=== PATIENT | female | born 1955 | race Caucasian/White ===

== ENCOUNTER 2018-10-04 21:00 | Inpatient (IN) | payer MEDICAID ==
[2018-10-04] MEDS ORDERED: Sodium Chloride 0.9% 1,000 ML IV ONE (21:32)
--- NOTE | 2018-10-04 21:32 | C.PDOC ---
History Of Present Illness The patient, whose past medical history includes IDDM, presents to the ED for evaluation of high blood sugar noted over the past 4 days. Patient is also complaining of swelling, redness and tenderness over her right 3rd toe. Patient denies fever, chills. Time Seen by Provider: 10/04/18 21:32 Chief Complaint (Nursing): High Blood Sugar History Per: Patient History/Exam Limitations: no limitations Onset/Duration Of Symptoms: Days (4) Current Symptoms Are (Timing): Still Present Severity: Mild Pain Scale Rating Of: 2 Recent travel outside of the [place]: No Additional History Per: Patient Past Medical History Reviewed: Historical Data, Nursing Documentation, Vital Signs Vital Signs: Last Vital Signs Temp 97.9 F 10/04/18 21:20 Pulse 99 H 10/04/18 21:20 Resp 20 10/04/18 21:20 BP 95/56 L 10/04/18 21:20 Pulse Ox 98 10/04/18 21:20 - Medical History PMH: Diabetes, HTN Surgical History: No Surg Hx Family History: States: Unknown Family Hx - Social History Hx Alcohol Use: No Hx Substance Use: No - Immunization History Hx Tetanus Toxoid Vaccination: No Hx Influenza Vaccination: No Hx Pneumococcal Vaccination: No Review Of Systems Constitutional: Positive for: Other (high blood sugar ). Negative for: Fever, Chills Eyes: Negative for: Vision Change Cardiovascular: Negative for: Chest Pain, Palpitations Respiratory: Negative for: Cough, Shortness of Breath Gastrointestinal: Negative for: Nausea, Vomiting, Abdominal Pain, Diarrhea Genitourinary: Negative for: Dysuria, Frequency, Hematuria Musculoskeletal: Positive for: Other (swelling, redness and tenderness to right 3rd toe ) Skin: Negative for: Rash, Lesions, Jaundice, Bruising Neurological: Negative for: Weakness, Numbness, Confusion, Altered Mental Status, Headache Psych: Negative for: Anxiety Physical Exam - Physical Exam Appears: Non-toxic, No Acute Distress Skin: Warm, Dry Head: Normacephalic Eye(s): bilateral: Normal Inspection Oral Mucosa: Moist Neck: Supple Chest: Symmetrical, No Deformity, No Tenderness Cardiovascular: Rhythm Regular Respiratory: No Rales, No Rhonchi, No Wheezing Gastrointestinal/Abdominal: Soft, No Tenderness, No Guarding, No Rebound Extremity: Normal ROM, Capillary Refill (less than 2 seconds ), Other (right 3rd toe: erythema with small amount of foul-smelling discharge ) Pulses: Left Dorsalis Pedis: Normal, Right Dorsalis Pedis: Normal Neurological/Psych: Oriented x3 ED Course And Treatment - Laboratory Results Result Diagrams: 10/04/18 22:10 10/04/18 22:10 O2 Sat by Pulse Oximetry: 98 (on RA ) Pulse Ox Interpretation: Normal Progress Note: Bloodwork and urinalysis ordered. IV fluids given. Disposition Discussed With Dr.: Dago Sanchez Comment: accepted the pt on his service and took over the care at 12:35 AM Doctor Will See Patient In The: Hospital Counseled Patient/Family Regarding: Studies Performed, Diagnosis - Disposition Disposition: HOSPITALIZED Disposition Time: 21:32 Condition: FAIR Forms: [facility] (Albanian) - POA Present On Arrival: Poor Glycemic Control, Pressure Ulcer - Clinical Impression Clinical Impression: Hyperglycemia, Diabetic complication, Uncontrolled diabetes mellitus, Oste omyelitis - Scribe Statement The provider has reviewed the documentation as recorded by the Scribe (Lucía Lopez) Provider Attestation: All medical record entries made by the Scribe were at my direction and personally dictated by me. I have reviewed the chart and agree that the record accurately reflects my personal performance of the history, physical exam, medical decision making, and the department course for this patient. I have also personally directed, reviewed, and agree with the discharge instructions and disposition. Decision To Admit - Pt Status Changed To: Hospital Disposition Of: Inpatient - Admit Certification Admit to Inpatient:: After my assessment, the patient will require hospitalization for at least two midnights. This is because of the severity of symptoms shown, intensity of services needed, and/or the medical risk in this patient being treated as an outpatient. - InPatient: Physician Admission Certification: I certify that this patient requires 2 or more midnights of care for the following reason:: After my assessment, the patient will require hospitalization for at least two midnights. This is because of the severity of symptoms shown, intensity of services needed, and/or the medical risk in this patient being treated as an outpatient. - . Bed Request Type: Regular Admitting Physician: Dago Sanchez Patient Diagnosis: Hyperglycemia, Diabetic complication, Uncontrolled diabetes mellitus, Osteomyelitis
[2018-10-04] MEDS ORDERED: Sodium Chloride 0.9% 1,000 ML ONE (22:07)
[2018-10-04 22:12] LABS: VENOUS BLOOD GAS BASE EXCESS 12.3 mmol/L (0.0-2.0); VENOUS BLOOD GAS PCO2 41 mmHg (40-60); VENOUS BLOOD GAS PO2 15 mm/Hg (30-55); VENOUS BLOOD PH 7.55 (7.32-7.43)
[2018-10-04 22:20] LABS: BASO % 0.2 % (0.0-2.0); EOS % 0.1 % (0.0-4.0); HEMOGLOBIN 8.9 g/dL (11.0-16.0); LYMPH # 2.5 K/uL (1.0-4.3); LYMPH % 21.1 % (20.0-40.0); MEAN CELL VOLUME 87.5 fL (81.0-99.0); MEAN CORPUSCULAR HEMOGLOBIN 27.5 pg (27.0-31.0); MEAN CORPUSCULAR HGB CONC 31.4 g/dL (33.0-37.0); MEAN PLATELET VOLUME 9.5 fL (7.2-11.7); MONO # 0.5 K/uL (0.0-0.8); MONO % 4.5 % (0.0-10.0); NEUT # 8.7 K/uL (1.8-7.0); NEUT % 74.1 % (50.0-75.0); NRBC % 0.1 % (0.0-2.0); RBC 3.23 Mil/uL (3.80-5.20); RED CELL DISTRIBUTION WIDTH 14.4 % (11.5-14.5); WHITE BLOOD COUNT 11.8 K/uL (4.8-10.8)
[2018-10-04 22:25] LABS: SQUAMOUS EPITHIAL 2 /hpf (0-5); URINE BACTERIA OCC (<OCC); URINE BILIRUBIN NEGATIVE (NEGATIVE); URINE BLOOD 1+ (NEGATIVE); URINE CLARITY Clear (Clear); URINE COLOR Yellow (YELLOW); URINE GLUCOSE (UA) 3+ mg/dL (Normal); URINE LEUKOCYTE ESTERASE 2+ Leu/uL (Negative); URINE PROTEIN NEGATIVE (NEGATIVE)
[2018-10-04 22:33] LABS: ALBUMIN 3.5 g/dL (3.5-5.0); ALT/SGPT 9 U/L (9-52); AST/SGOT 21 U/L (14-36); BLOOD UREA NITROGEN 20 mg/dL (7-17); CALCIUM 7.9 mg/dl (8.6-10.4); GFR NON-AFRICAN AMERICAN 56; LIPASE 62 U/L (23-300)
[2018-10-04] MEDS ORDERED: (Novolin R) Insulin Human Regular 100 units/ml vial IVP ONE (22:34)
[2018-10-04] MEDS ORDERED: Piperacillin/Tazobact 3.375 gm 100 ML IVPB STA (22:38)
[2018-10-04] MEDS ORDERED: Vancomycin 1 GM 1 GM/250 ML BAG IVPB STA (22:38)
[2018-10-04] MEDS ORDERED: (Novolin R) Insulin Human Regular 100 units/ml vial ONE (22:41)
[2018-10-04] MEDS ORDERED: Piperacillin/Tazobact 3.375 gm 100 ML IVPB ONE (22:53)
[2018-10-04] MEDS ORDERED: Vancomycin 1 GM 1 GM/250 ML BAG IVPB ONE (23:23)
[2018-10-05 00:36] LABS: VENOUS BLOOD GAS BASE EXCESS 10.9 mmol/L (0.0-2.0); VENOUS BLOOD GAS PCO2 47 mmHg (40-60); VENOUS BLOOD GAS PO2 24 mm/Hg (30-55); VENOUS BLOOD PH 7.49 (7.32-7.43)
[2018-10-05] MEDS ORDERED: Sodium Chloride 0.9% 1,000 ML IV ONE (00:37)
[2018-10-05 01:04] LABS: VENOUS BLOOD GAS PCO2 47 mmHg (40-60); VENOUS BLOOD GAS PO2 42 mm/Hg (30-55); VENOUS BLOOD PH 7.48 (7.32-7.43)
[2018-10-05] MEDS: Piperacillin/Tazobact 3.375 GM in Sodium Chloride 100 ML IVPB SCH ×4 (01:11→18:11)
[2018-10-05] MEDS: Sodium Chloride 0.9% 1,000 ML IV SCH ×3 (02:04→21:44)
[2018-10-05] MEDS: (Novolin R) Insulin Human Regular 100 units/ml vial SC SCH ×4 (08:30→21:44)
[2018-10-05 09:07] LABS: BLOOD UREA NITROGEN 18 mg/dL (7-17); CALCIUM 7.2 mg/dl (8.6-10.4); GFR NON-AFRICAN AMERICAN 56
[2018-10-05 09:54] LABS: HEMOGLOBIN 8.5 g/dL (11.0-16.0); MEAN CELL VOLUME 87.4 fL (81.0-99.0); MEAN CORPUSCULAR HEMOGLOBIN 29.7 pg (27.0-31.0); MEAN PLATELET VOLUME 9.3 fL (7.2-11.7); RBC 2.85 Mil/uL (3.80-5.20); RED CELL DISTRIBUTION WIDTH 13.6 % (11.5-14.5); WHITE BLOOD COUNT 9.9 K/uL (4.8-10.8)
[2018-10-05] MEDS ORDERED: Potassium Chloride 20 mEq ER Tab PO ONE (10:00)
[2018-10-05] MEDS: Enoxaparin 40 mg Syringe SC SCH (10:09)
[2018-10-05] MEDS: Pantoprazole 20 mg EC Tab PO SCH (10:09)
[2018-10-05] MEDS: (Lantus) Insulin Glargine, Recombinant SC SCH ×2 (10:12→17:16)
[2018-10-05] MEDS: Metoprolol Succinate 25 mg XL Tab PO SCH (10:12)
--- NOTE | 2018-10-05 13:06 | CT ---
Date of service: 10/04/2018 PROCEDURE: RIGHT FOOT CT WITHOUT CONTRAST HISTORY: right foot, att 3rd digit COMPARISON: none available. TECHNIQUE: A volumetric CT acquisition through the right foot is been performed without intravenous contrast. Reformatted dataset provided for interpretation as well. Radiation dose:Total exam DLP = 325.90 mGy-cm. This CT exam was performed using one or more of the following dose reduction techniques: Automated exposure control, adjustment of the mA and/or kV according to patient size, and/or use of iterative reconstruction technique. FINDINGS: Erosive changes destroyed the distal phalanx and likely a portion of the distal segment middle phalanx right 3rd digit with surrounding soft tissue edema present. No similar findings throughout the remainder of the right foot including the midfoot and hindfoot bony anatomy compatible. The findings are most compatible with osteomyelitis in the proper clinical setting lower destructive processes possible as well. Further clinical correlation is advised. No emphysematous soft tissue changes are identified. Diffuse cellulitis is appreciated throughout the right foot moderately, concentrated at the distal portion 3rd digit. No fracture, subluxation or dislocation evident. A severe hallux valgus deformity is identified with diffuse hammertoe deformities throughout the 2nd through 5th digits. IMPRESSION: Findings most compatible clinically suspected osteomyelitis involving the distal phalanx right 3rd digit possibly distal portion middle phalanx same toe. Diffuse soft tissue edema seen throughout the right foot but is concentrated at the 3rd digit. Concordant preliminary report from [place], 10/04/2018, 11:25 p.m..
--- NOTE | 2018-10-05 14:41 | VASCLAB ---
Date of service: 10/05/2018 STUDY DESCRIPTION: Lower Extremity Arterial Exam (PVR). HISTORY: PAD, Diabetic. PRIORS: None. TECHNIQUE: Pulse volume recording waveforms and segmental pressures of bilateral lower extremities at multiple levels were obtained. Ankle Brachial Indices (ABIs) were calculated. Report prepared by FRANCISCA Alexis RIGHT LOWER EXTREMITY: * Brachial artery: Pressure - 138 mmHg. * High thigh: Pressure - 180 mmHg: Ratio - 1.30: PVR waveform - Pulsatile * Low thigh: Pressure - 157 mmHg: Ratio - 1.14 PVR waveform: Pulsatile * Calf: Pressure - 179 mmHg: Ratio - 1.30 PVR waveform: Pulsatile * Posterior tibial Artery: Pressure - 155 mmHg: Ratio - 1.12 PVR waveform: Pulsatile * Dorsalis pedis Artery: Pressure - 152 mmHg: Ratio - 1.10 PVR waveform: Pulsatile Ankle brachial index (JEANETTE): 1.12 LEFT LOWER EXTREMITY: * Brachial artery: Pressure - 132 mmHg. * High thigh: Pressure - 162 mmHg: Ratio - 1.17 PVR waveform - Pulsatile * Low thigh: Pressure - 174 mmHg: Ratio - 1.26 PVR waveform: Pulsatile * Calf: Pressure - 169 mmHg: Ratio - 1.22 PVR waveform: Pulsatile * Posterior tibial Artery: Pressure - 157 mmHg: Ratio - 1.14 PVR waveform: Pulsatile * Dorsalis pedis Artery: Pressure - 148 mmHg: Ratio - 1.07 PVR waveform: Pulsatile Ankle brachial index (JEANETTE): 1.14 OTHER FINDINGS: None. IMPRESSION: There was no evidence of hemodynamically significant arterial insufficiency in bilateral lower extremities, at rest.
--- NOTE | 2018-10-05 16:13 | CP.PCM.CON ---
History of Present Illness - History of Present Illness History of Present Illness: Podiatry Consult note: Dr. Saldivar 63 year old female patient with PMHx of DM and HTN was seen and evaluated at bedside for right foot 3rd digit cellulitis. Patient states that she had swelling in her toe with redness and tenderness for approx 4 days. Patient states that she got the wound because of the diabetes. Patient denies of any treatment prior to coming to the hospital. Patient denies of taking abx prior to coming to the hospital. Patient denies of having any recent F/N/V/C/SOB/CP/headache. Denies of any other pedal complains at this time. PMHx: DM, HTN PSHx: denies Allergies: NKDA SHx: Denies EtOH, smoking or illicit drug usage Review of Systems - Constitutional Constitutional: As Per HPI Past Patient History - Past Social History Smoking Status: Never Smoked - CARDIAC Hx Hypertension: Yes - ENDOCRINE/METABOLIC Hx Diabetes Mellitus Type 2: Yes - MUSCULOSKELETAL/RHEUMATOLOGICAL Hx Falls: No - PSYCHIATRIC Hx Substance Use: No - SURGICAL HISTORY Hx Surgeries: No - ANESTHESIA Hx Anesthesia: Yes Hx Anesthesia Reactions: No Hx Malignant Hyperthermia: No Meds Allergies/Adverse Reactions: Allergies Allergy/AdvReac Type Severity Reaction Status Date / Time No Known Allergies Allergy Unverified 10/04/18 21:24 - Medications Medications: Current Medications Acetaminophen (Tylenol 325mg Tab) 650 mg PO Q6 PRN PRN Reason: Fever >100.4 F Aspirin (Ecotrin) 81 mg PO DAILY [facility] Last Admin: 10/05/18 10:09 Dose: 81 mg Enoxaparin Sodium (Lovenox) 40 mg SC DAILY [facility] Last Admin: 10/05/18 10:09 Dose: 40 mg Gabapentin (Neurontin) 300 mg PO TID [facility] Last Admin: 10/05/18 14:58 Dose: 300 mg Sodium Chloride (Sodium Chloride 0.9%) 1,000 mls @ 100 mls/hr IV .Q10H [facility] Last Admin: 10/05/18 13:12 Dose: Not Given Vancomycin HCl 1,000 mg/ (Sodium Chloride) 250 mls @ 166.6 mls/hr IVPB Q12H [facility]; Protocol Last Admin: 10/05/18 13:15 Dose: 166.6 mls/hr Piperacillin Sod/Tazobactam (Sod 3.375 gm/ Sodium Chloride) 100 mls @ 200 mls/hr IVPB Q6H [facility]; Protocol Last Admin: 10/05/18 13:13 Dose: 200 mls/hr Insulin Glargine (Lantus) 28 unit SC BID [facility] Last Admin: 10/05/18 10:12 Dose: 28 units Insulin Human Regular (Novolin R) 0 unit SC ACHS [facility]; Protocol Metformin HCl (Glucophage) 1,000 mg PO BID [facility] Last Admin: 10/05/18 10:09 Dose: 1,000 mg Metoprolol Succinate (Toprol Xl) 25 mg PO DAILY [facility] Last Admin: 10/05/18 10:12 Dose: 25 mg Pantoprazole Sodium (Protonix Ec Tab) 20 mg PO DAILY [facility] Last Admin: 10/05/18 10:09 Dose: 20 mg Pneumococcal Polyvalent Vaccine (Pneumovax 23 Vaccine) 0.5 ml IM .ONCE ONE Stop: 10/07/18 10:01 Tramadol HCl (Ultram) 50 mg PO TID PRN PRN Reason: Pain, moderate (4-7) Physical Exam - Constitutional Appears: Well, Non-toxic, No Acute Distress - Extremities Exam Additional comments: RLE focused exam: VASC: DP/PT pulses are palpable 2/4, Cap refill time: < 3 sec to all digits, Temp gradient: warm to cool from proximal to distal with increasing temp grad ient localized to 3rd digit, non pitting edema accompanied with erythema localized to the right foot 3rd digit DERM: hyperkeratotic lesion at the level of proximal interphalangeal joint measuring approx 0.5cmx0.2cmx0.2cm noted with a central opening, purulent drainage upon palpation, no malodor, no tunneling, no undermining, no tracking, periwound erythema NEURO: Protective sensation grossly intact ORTHO: Pain on palpation of the 3rd digit, MMT: 5/5 in all 4 direction at the - Neurological Exam Neurological exam: Alert, Oriented x3 - Psychiatric Exam Psychiatric exam: Normal Affect, Normal Mood Results - Vital Signs Recent Vital Signs: Last Vital Signs Temp 98.9 F 10/05/18 08:18 Pulse 80 10/05/18 08:18 Resp 20 10/05/18 08:18 BP 135/72 10/05/18 08:18 Pulse Ox 95 10/05/18 08:18 - Labs Result Diagrams: 10/05/18 07:00 10/05/18 07:00 Labs: Laboratory Results - last 24 hr 10/04/18 10/04/18 10/04/18 21:18 22:00 22:10 WBC 11.8 H RBC 3.23 L Hgb 8.9 L Hct 28.3 L MCV 87.5 MCH 27.5 MCHC 31.4 L RDW 14.4 Plt Count 438 H MPV 9.5 Neut % (Auto) 74.1 Lymph % (Auto) 21.1 Green % (Auto) 4.5 Eos % (Auto) 0.1 Baso % (Auto) 0.2 Neut # (Auto) 8.7 H Lymph # (Auto) 2.5 Green # (Auto) 0.5 Eos # (Auto) 0.0 Baso # (Auto) 0.0 pO2 15 L VBG pH 7.55 H VBG pCO2 41 VBG HCO3 32.6 VBG Total CO2 37.2 H VBG O2 Sat (Calc) 41.2 VBG Base Excess 12.3 H VBG Potassium 2.9 L Sodium 130.0 L Chloride 90.0 L Glucose 413 H* Lactate 2.4 H Crit Value Called To Crit Value Called By Margy lara Crit Value Read Back Y Blood Gas Notified Time 2211 Potassium Carbon Dioxide Anion Gap BUN Creatinine Est GFR ( Amer) Est GFR (Non-Af Amer) POC Glucose (mg/dL) > 500 H* Random Glucose Hemoglobin A1c Calcium Total Bilirubin AST ALT Alkaline Phosphatase Total Protein Albumin Globulin Albumin/Globulin Ratio Lipase Venous Blood Potassium 2.9 L Urine Color Urine Clarity Urine pH Ur Specific [place] Urine Protein Urine Glucose (UA) Urine Ketones Urine Blood Urine Nitrate Urine Bilirubin Urine Urobilinogen Ur Leukocyte Esterase Urine WBC (Auto) Urine RBC (Auto) Ur Squamous Epith Cells Urine Bacteria B-Hydroxybutyrate 10/04/18 10/04/18 10/04/18 22:10 22:10 22:17 WBC RBC Hgb Hct MCV MCH MCHC RDW Plt Count MPV Neut % (Auto) Lymph % (Auto) Green % (Auto) Eos % (Auto) Baso % (Auto) Neut # (Auto) Lymph # (Auto) Green # (Auto) Eos # (Auto) Baso # (Auto) pO2 VBG pH VBG pCO2 VBG HCO3 VBG Total CO2 VBG O2 Sat (Calc) VBG Base Excess VBG Potassium Sodium 127 L Chloride 82 L Glucose Lactate Crit Value Called To Crit Value Called By Crit Value Read Back Blood Gas Notified Time Potassium 3.3 L Carbon Dioxide 35 H Anion Gap 14 BUN 20 H Creatinine 1.0 Est GFR ( Amer) > 60 Est GFR (Non-Af Amer) 56 POC Glucose (mg/dL) Random Glucose 551 H* Hemoglobin A1c 14.2 H Calcium 7.9 L Total Bilirubin 0.4 AST 21 ALT 9 Alkaline Phosphatase 110 Total Protein 7.0 Albumin 3.5 Globulin 3.5 Albumin/Globulin Ratio 1.0 Lipase 62 Venous Blood Potassium Urine Color Yellow Urine Clarity Clear Urine pH 7.0 Ur Specific [place] 1.018 Urine Protein Negative Urine Glucose (UA) 3+ H Urine Ketones Negative Urine Blood 1+ H Urine Nitrate Negative Urine Bilirubin Negative Urine Urobilinogen 4.0 H Ur Leukocyte Esterase 2+ H Urine WBC (Auto) 52 H Urine RBC (Auto) 5 H Ur Squamous Epith Cells 2 Urine Bacteria Occ H B-Hydroxybutyrate 0.32 H 10/04/18 10/05/18 10/05/18 23:49 00:30 01:00 WBC RBC Hgb Hct MCV MCH MCHC RDW Plt Count MPV Neut % (Auto) Lymph % (Auto) Green % (Auto) Eos % (Auto) Baso % (Auto) Neut # (Auto) Lymph # (Auto) Green # (Auto) Eos # (Auto) Baso # (Auto) pO2 24 L 42 VBG pH 7.49 H 7.48 H VBG pCO2 47 47 VBG HCO3 32.1 32.3 VBG Total CO2 37.2 H 36.4 H VBG O2 Sat (Calc) 42.5 80.5 H VBG Base Excess 10.9 H 10.0 H VBG Potassium > 20.0 H* 2.8 L Sodium 182.0 H* 135.0 Chloride 109.0 H 95.0 L Glucose 177 H 191 H Lactate 4.0 H* 2.9 H Crit Value Called To Dennis love/rn Crit Value Called By Jayson mejia/rt Crit Value Read Back Y Blood Gas Notified Time 40 Potassium Carbon Dioxide Anion Gap BUN Creatinine Est GFR ( Amer) Est GFR (Non-Af Amer) POC Glucose (mg/dL) 243 H Random Glucose Hemoglobin A1c Calcium Total Bilirubin AST ALT Alkaline Phosphatase Total Protein Albumin Globulin Albumin/Globulin Ratio Lipase Venous Blood Potassium > 20.0 H* 2.8 L Urine Color Urine Clarity Urine pH Ur Specific [place] Urine Protein Urine Glucose (UA) Urine Ketones Urine Blood Urine Nitrate Urine Bilirubin Urine Urobilinogen Ur Leukocyte Esterase Urine WBC (Auto) Urine RBC (Auto) Ur Squamous Epith Cells Urine Bacteria B-Hydroxybutyrate 10/05/18 10/05/18 10/05/18 03:41 07:00 07:00 WBC 9.9 RBC 2.85 L Hgb 8.5 L Hct 25.0 L MCV 87.4 MCH 29.7 MCHC 34.0 RDW 13.6 Plt Count 385 MPV 9.3 Neut % (Auto) Lymph % (Auto) Green % (Auto) Eos % (Auto) Baso % (Auto) Neut # (Auto) Lymph # (Auto) Green # (Auto) Eos # (Auto) Baso # (Auto) pO2 VBG pH VBG pCO2 VBG HCO3 VBG Total CO2 VBG O2 Sat (Calc) VBG Base Excess VBG Potassium Sodium 132 Chloride 93 L Glucose Lactate Crit Value Called To Crit Value Called By Crit Value Read Back Blood Gas Notified Time Potassium 3.1 L Carbon Dioxide 33 H Anion Gap 9 L BUN 18 H Creatinine 1.0 Est GFR ( Amer) > 60 Est GFR (Non-Af Amer) 56 POC Glucose (mg/dL) 255 H Random Glucose 250 H D Hemoglobin A1c Calcium 7.2 L Total Bilirubin AST ALT Alkaline Phosphatase Total Protein Albumin Globulin Albumin/Globulin Ratio Lipase Venous Blood Potassium Urine Color Urine Clarity Urine pH Ur Specific [place] Urine Protein Urine Glucose (UA) Urine Ketones Urine Blood Urine Nitrate Urine Bilirubin Urine Urobilinogen Ur Leukocyte Esterase Urine WBC (Auto) Urine RBC (Auto) Ur Squamous Epith Cells Urine Bacteria B-Hydroxybutyrate 10/05/18 10/05/18 07:33 11:39 WBC RBC Hgb Hct MCV MCH MCHC RDW Plt Count MPV Neut % (Auto) Lymph % (Auto) Green % (Auto) Eos % (Auto) Baso % (Auto) Neut # (Auto) Lymph # (Auto) Green # (Auto) Eos # (Auto) Baso # (Auto) pO2 VBG pH VBG pCO2 VBG HCO3 VBG Total CO2 VBG O2 Sat (Calc) VBG Base Excess VBG Potassium Sodium Chloride Glucose Lactate Crit Value Called To Crit Value Called By Crit Value Read Back Blood Gas Notified Time Potassium Carbon Dioxide Anion Gap BUN Creatinine Est GFR ( Amer) Est GFR (Non-Af Amer) POC Glucose (mg/dL) 263 H 316 H Random Glucose Hemoglobin A1c Calcium Total Bilirubin AST ALT Alkaline Phosphatase Total Protein Albumin Globulin Albumin/Globulin Ratio Lipase Venous Blood Potassium Urine Color Urine Clarity Urine pH Ur Specific [place] Urine Protein Urine Glucose (UA) Urine Ketones Urine Blood Urine Nitrate Urine Bilirubin Urine Urobilinogen Ur Leukocyte Esterase Urine WBC (Auto) Urine RBC (Auto) Ur Squamous Epith Cells Urine Bacteria B-Hydroxybutyrate Assessment & Plan - Assessment and Plan (Free Text) Assessment: 63 year old female with PMHx of DM, HTN was evaluated for right 3rd digit cellulitis with underlying OM Plan: Patient seen and evaluated with attending Dr. Saldivar Labs vitals and charts reviewed - VSS, WBC@9.9 (decreased from yesterday 11.8) RLE CT evaluated: ramon erosion with cortical bone destruction noted at the DIPJ of the 3rd digit consistent with OM Wound cultures taken - pending ID consult - recs appreciated - Abx as per ID At this time, patient given option of possible amputation vs abx - patient opting to have abx - Discussed with patient of possible risks, benefits and complications of both options Wound cleaned with saline and dressing applied with betadine, DSD Dakins solution ordered Sx shoe ordered - FWB to the RLE using shoe Thank you for the podiatry consult and allowing to take part in patient care Will continue to follow patient while in-house - Date & Time Date: 10/05/18 Time: 16:29
--- NOTE | 2018-10-05 19:27 | CP.PCM.CON ---
History of Present Illness - History of Present Illness History of Present Illness: 63 year old female patient with PMHx of DM and HTN was seen and evaluated at bedside for right foot 3rd digit cellulitis. CT showed prob OM right 3rd digit ID consulted for this PMHx: DM, HTN PSHx: denies Allergies: NKDA SHx: Denies EtOH, smoking or illicit drug usage Review of Systems - Constitutional Constitutional: As Per HPI - EENT Eyes: absent: As Per HPI, Blind Spots, Blurred Vision, Change in Vision, Decreased Night Vision, Diplopia, Discharge, Dry Eye, Exophthalmos, Floaters, Irritation, Itchy Eyes, Loss of Peripheral Vision, Pain, Photophobia, Requires Corrective Lenses, Sees Flashes, Spots in Vision, Tunnel Vision, Other Visual Disturbances, Loss of Vision, Other Ears: absent: As Per HPI, Decreased Hearing, Ear Discharge, Ear Pain, Tinnitus, Abnormal Hearing, Disequilibrium, Dizziness, Other Nose/Mouth/Throat: absent: As Per HPI, Epistaxis, Nasal Congestion, Nasal Discharge, Nasal Obstruction, Nasal Trauma, Nose Pain, Post Nasal Drip, Sinus Pain, Sinus Pressure, Bleeding Gums, Change in Voice, Dental Pain, Dry Mouth, Dysphagia, Halitosis, Hoarsness, Lip Swelling, Mouth Lesions, Mouth Pain, Odynophagia, Sore Throat, Throat Swelling, Tongue Swelling, Facial Pain, Neck Pain, Neck Mass, Other - Breasts Breasts: absent: As Per HPI, Change in Shape, Mass, Pain, Nipple Discharge, Nipple Inversion, Skin Changes, Swelling, Other - Cardiovascular Cardiovascular: absent: As Per HPI, Acrocyanosis, Chest Pain, Chest Pain at Rest, Chest Pain with Activity, Claudication, Diaphoresis, Dyspnea, Dyspnea on Exertion, Edema, Irregular Heart Rhythm, Pain Radiating to Arm/Neck/Jaw, Leg Edema, Leg Ulcers, Lightheadedness, Orthopnea, Palpitations, Paroxysmal Nocturnal Dyspnea, Pedal Edema, Radiating Pain, Rapid Heart Rate, Slow Heart Rate, Syncope, Other - Respiratory Respiratory: absent: As Per HPI, Cough, Dyspnea, Hemoptysis, Dyspnea on Exertion, Wheezing, Snoring, Stridor, Pain on Inspiration, Chest Congestion, Excessive Mucous Production, Change in Mucous Color, Pain with Coughing, Other - Gastrointestinal Gastrointestinal: absent: As Per HPI, Abdominal Pain, Belching, Bloating, Change in Bowel Habits, Change in Stool Character, Coffee Ground Emesis, Constipation, Cramping, Diarrhea, Dyspepsia, Dysphagia, Early Satiety, Excessive Flatus, Fecal Incontinence, Heartburn, Hematemesis, Hematochezia, Loose Stools, Melena, Nausea, Odynophagia, Temesmus, Vomiting, Other - Genitourinary Genitourinary: absent: As Per HPI, Change in Urinary Stream, Difficulty Urinating, Dysuria, Flank Pain, Hematuria, Pyuria, Nocturia, Urinary Incontinence, Urinary Frequency, Urinary Hesitance, Urinary Urgency, Voiding Freq/Small Amts, Freq UTI, Hx Renal/Bladder Calculi, Hx /Renal Surgery, Bladder Distension, Other - Reproductive: Female Reproductive:Female: absent: As Per HPI, Amenorrhea, Amenorrhea/ Control, Currently Menstual, Cycle <21 Days, Cycle >35 Days, Cycle Variable, Menses 1-7 Days, Menses >/= 8 Days, Menses Variable, Cycle > 4 Weeks Between, No Menses for 6 Months, Heavy Menses, Light Menses, Normal Menses, Spotting Between Cycles, S/P Hysterectomy, Menopausal, Post Menopausal, Premenarche, Abnormal Vaginal Bleeding, Dysmenorrhea, Dyspareunia, Genital Lesions, Genital Pruritis, Pelvic Pain, Prolapse Symptoms, Sexual Dysfunction, Vaginal Discharge, Vaginal Dryness, Vaginal Odor, Vaginal Pruritis, Other - Menstruation Menstruation: absent: As Per HPI, Amenorrhea, Amenorrhea/ Control, Currently Menstual, Cycle <21 Days, Cycle >35 Days, Cycle Variable, Menses 1-7 Days, Menses >/= 8 Days, Menses Variable, Cycle > 4 Weeks Between, No Menses for 6 Months, Heavy Menses, Light Menses, Normal Menses, Spotting Between Cycles, S/P Hysterectomy, Menopausal, Post Menopausal, Premenarche, Abnormal Vaginal Bleeding, Dysmenorrhea, Other - Musculoskeletal Musculoskeletal: As Per HPI - Integumentary Integumentary: As Per HPI Past Patient History - Past Social History Smoking Status: Never Smoked - CARDIAC Hx Hypertension: Yes - ENDOCRINE/METABOLIC Hx Diabetes Mellitus Type 2: Yes - MUSCULOSKELETAL/RHEUMATOLOGICAL Hx Falls: No - PSYCHIATRIC Hx Substance Use: No - SURGICAL HISTORY Hx Surgeries: No - ANESTHESIA Hx Anesthesia: Yes Hx Anesthesia Reactions: No Hx Malignant Hyperthermia: No Meds Allergies/Adverse Reactions: Allergies Allergy/AdvReac Type Severity Reaction Status Date / Time No Known Allergies Allergy Unverified 10/04/18 21:24 - Medications Medications: Current Medications Acetaminophen (Tylenol 325mg Tab) 650 mg PO Q6 PRN PRN Reason: Fever >100.4 F Aspirin (Ecotrin) 81 mg PO DAILY [facility] Last Admin: 10/05/18 10:09 Dose: 81 mg Enoxaparin Sodium (Lovenox) 40 mg SC DAILY [facility] Last Admin: 10/05/18 10:09 Dose: 40 mg Gabapentin (Neurontin) 300 mg PO TID [facility] Last Admin: 10/05/18 17:15 Dose: 300 mg Sodium Chloride (Sodium Chloride 0.9%) 1,000 mls @ 100 mls/hr IV .Q10H [facility] Last Admin: 10/05/18 13:12 Dose: Not Given Vancomycin HCl 1,000 mg/ (Sodium Chloride) 250 mls @ 166.6 mls/hr IVPB Q12H [facility]; Protocol Last Admin: 10/05/18 13:15 Dose: 166.6 mls/hr Piperacillin Sod/Tazobactam (Sod 3.375 gm/ Sodium Chloride) 100 mls @ 200 mls/hr IVPB Q6H [facility]; Protocol Last Admin: 10/05/18 18:11 Dose: 200 mls/hr Insulin Glargine (Lantus) 28 unit SC BID [facility] Last Admin: 10/05/18 17:16 Dose: 28 units Insulin Human Regular (Novolin R) 0 unit SC ACHS [facility]; Protocol Last Admin: 10/05/18 17:15 Dose: 3 units Metformin HCl (Glucophage) 1,000 mg PO BID [facility] Last Admin: 10/05/18 17:14 Dose: 1,000 mg Metoprolol Succinate (Toprol Xl) 25 mg PO DAILY [facility] Last Admin: 10/05/18 10:12 Dose: 25 mg Pantoprazole Sodium (Protonix Ec Tab) 20 mg PO DAILY [facility] Last Admin: 10/05/18 10:09 Dose: 20 mg Pneumococcal Polyvalent Vaccine (Pneumovax 23 Vaccine) 0.5 ml IM .ONCE ONE Stop: 10/07/18 10:01 Sodium Hypochlorite (Dakins Solution 0.5%) 10 ml TOP DAILY [facility] Tramadol HCl (Ultram) 50 mg PO TID PRN PRN Reason: Pain, moderate (4-7) Physical Exam - Constitutional Appears: Well - Head Exam Head Exam: ATRAUMATIC, NORMAL INSPECTION, NORMOCEPHALIC - Eye Exam Eye Exam: EOMI, Normal appearance, PERRL Pupil Exam: NORMAL ACCOMODATION, PERRL - ENT Exam ENT Exam: Mucous Membranes Moist, Normal Exam - Neck Exam Neck exam: Positive for: Normal Inspection - Respiratory Exam Respiratory Exam: Clear to Auscultation Bilateral, NORMAL BREATHING PATTERN - Cardiovascular Exam Cardiovascular Exam: REGULAR RHYTHM - GI/Abdominal Exam GI & Abdominal Exam: Normal Bowel Sounds, Soft. absent: Tenderness - Rectal Exam Rectal Exam: Deferred - Extremities Exam Extremities exam: Positive for: normal inspection - Back Exam Back exam: NORMAL INSPECTION - Neurological Exam Neurological exam: Alert, CN II-XII Intact, Normal Gait, Oriented x3, Reflexes Normal - Psychiatric Exam Psychiatric exam: Normal Affect, Normal Mood - Skin Additional comments: wound noted right third digit with min drainage no fluctuance no gas no pus expressed plses + Results - Vital Signs Recent Vital Signs: Last Vital Signs Temp 98.8 F 10/05/18 17:15 Pulse 92 H 10/05/18 17:15 Resp 20 10/05/18 17:15 BP 142/74 10/05/18 17:15 Pulse Ox 95 10/05/18 17:15 - Labs Result Diagrams: 10/05/18 07:00 10/06/18 08:04 Labs: Laboratory Results - last 24 hr 10/04/18 10/04/18 10/04/18 21:18 22:00 22:10 WBC 11.8 H RBC 3.23 L Hgb 8.9 L Hct 28.3 L MCV 87.5 MCH 27.5 MCHC 31.4 L RDW 14.4 Plt Count 438 H MPV 9.5 Neut % (Auto) 74.1 Lymph % (Auto) 21.1 [place] % (Auto) 4.5 Eos % (Auto) 0.1 Baso % (Auto) 0.2 Neut # (Auto) 8.7 H Lymph # (Auto) 2.5 [place] # (Auto) 0.5 Eos # (Auto) 0.0 Baso # (Auto) 0.0 pO2 15 L VBG pH 7.55 H VBG pCO2 41 VBG HCO3 32.6 VBG Total CO2 37.2 H VBG O2 Sat (Calc) 41.2 VBG Base Excess 12.3 H VBG Potassium 2.9 L Sodium 130.0 L Chloride 90.0 L Glucose 413 H* Lactate 2.4 H Crit Value Called To Crit Value Called By Margy lara Crit Value Read Back Y Blood Gas Notified Time 2212 Potassium Carbon Dioxide Anion Gap BUN Creatinine Est GFR ( Amer) Est GFR (Non-Af Amer) POC Glucose (mg/dL) > 500 H* Random Glucose Hemoglobin A1c Calcium Total Bilirubin AST ALT Alkaline Phosphatase Total Protein Albumin Globulin Albumin/Globulin Ratio Lipase Venous Blood Potassium 2.9 L Urine Color Urine Clarity Urine pH Ur Specific [place] Urine Protein Urine Glucose (UA) Urine Ketones Urine Blood Urine Nitrate Urine Bilirubin Urine Urobilinogen Ur Leukocyte Esterase Urine WBC (Auto) Urine RBC (Auto) Ur Squamous Epith Cells Urine Bacteria B-Hydroxybutyrate 10/04/18 10/04/18 10/04/18 22:10 22:10 22:17 WBC RBC Hgb Hct MCV MCH MCHC RDW Plt Count MPV Neut % (Auto) Lymph % (Auto) [place] % (Auto) Eos % (Auto) Baso % (Auto) Neut # (Auto) Lymph # (Auto) [place] # (Auto) Eos # (Auto) Baso # (Auto) pO2 VBG pH VBG pCO2 VBG HCO3 VBG Total CO2 VBG O2 Sat (Calc) VBG Base Excess VBG Potassium Sodium 127 L Chloride 82 L Glucose Lactate Crit Value Called To Crit Value Called By Crit Value Read Back Blood Gas Notified Time Potassium 3.3 L Carbon Dioxide 35 H Anion Gap 14 BUN 20 H Creatinine 1.0 Est GFR ( Amer) > 60 Est GFR (Non-Af Amer) 56 POC Glucose (mg/dL) Random Glucose 551 H* Hemoglobin A1c 14.2 H Calcium 7.9 L Total Bilirubin 0.4 AST 21 ALT 9 Alkaline Phosphatase 110 Total Protein 7.0 Albumin 3.5 Globulin 3.5 Albumin/Globulin Ratio 1.0 Lipase 62 Venous Blood Potassium Urine Color Yellow Urine Clarity Clear Urine pH 7.0 Ur Specific [place] 1.018 Urine Protein Negative Urine Glucose (UA) 3+ H Urine Ketones Negative Urine Blood 1+ H Urine Nitrate Negative Urine Bilirubin Negative Urine Urobilinogen 4.0 H Ur Leukocyte Esterase 2+ H Urine WBC (Auto) 52 H Urine RBC (Auto) 5 H Ur Squamous Epith Cells 2 Urine Bacteria Occ H B-Hydroxybutyrate 0.32 H 10/04/18 10/05/18 10/05/18 23:49 00:30 01:00 WBC RBC Hgb Hct MCV MCH MCHC RDW Plt Count MPV Neut % (Auto) Lymph % (Auto) [place] % (Auto) Eos % (Auto) Baso % (Auto) Neut # (Auto) Lymph # (Auto) [place] # (Auto) Eos # (Auto) Baso # (Auto) pO2 24 L 42 VBG pH 7.49 H 7.48 H VBG pCO2 47 47 VBG HCO3 32.1 32.3 VBG Total CO2 37.2 H 36.4 H VBG O2 Sat (Calc) 42.5 80.5 H VBG Base Excess 10.9 H 10.0 H VBG Potassium > 20.0 H* 2.8 L Sodium 182.0 H* 135.0 Chloride 109.0 H 95.0 L Glucose 177 H 191 H Lactate 4.0 H* 2.9 H Crit Value Called To Dennis love/rn Crit Value Called By Jayson mejia/rt Crit Value Read Back Y Blood Gas Notified Time 40 Potassium Carbon Dioxide Anion Gap BUN Creatinine Est GFR ( Amer) Est GFR (Non-Af Amer) POC Glucose (mg/dL) 243 H Random Glucose Hemoglobin A1c Calcium Total Bilirubin AST ALT Alkaline Phosphatase Total Protein Albumin Globulin Albumin/Globulin Ratio Lipase Venous Blood Potassium > 20.0 H* 2.8 L Urine Color Urine Clarity Urine pH Ur Specific [place] Urine Protein Urine Glucose (UA) Urine Ketones Urine Blood Urine Nitrate Urine Bilirubin Urine Urobilinogen Ur Leukocyte Esterase Urine WBC (Auto) Urine RBC (Auto) Ur Squamous Epith Cells Urine Bacteria B-Hydroxybutyrate 10/05/18 10/05/18 10/05/18 03:41 07:00 07:00 WBC 9.9 RBC 2.85 L Hgb 8.5 L Hct 25.0 L MCV 87.4 MCH 29.7 MCHC 34.0 RDW 13.6 Plt Count 385 MPV 9.3 Neut % (Auto) Lymph % (Auto) [place] % (Auto) Eos % (Auto) Baso % (Auto) Neut # (Auto) Lymph # (Auto) [place] # (Auto) Eos # (Auto) Baso # (Auto) pO2 VBG pH VBG pCO2 VBG HCO3 VBG Total CO2 VBG O2 Sat (Calc) VBG Base Excess VBG Potassium Sodium 132 Chloride 93 L Glucose Lactate Crit Value Called To Crit Value Called By Crit Value Read Back Blood Gas Notified Time Potassium 3.1 L Carbon Dioxide 33 H Anion Gap 9 L BUN 18 H Creatinine 1.0 Est GFR ( Amer) > 60 Est GFR (Non-Af Amer) 56 POC Glucose (mg/dL) 255 H Random Glucose 250 H D Hemoglobin A1c Calcium 7.2 L Total Bilirubin AST ALT Alkaline Phosphatase Total Protein Albumin Globulin Albumin/Globulin Ratio Lipase Venous Blood Potassium Urine Color Urine Clarity Urine pH Ur Specific [place] Urine Protein Urine Glucose (UA) Urine Ketones Urine Blood Urine Nitrate Urine Bilirubin Urine Urobilinogen Ur Leukocyte Esterase Urine WBC (Auto) Urine RBC (Auto) Ur Squamous Epith Cells Urine Bacteria B-Hydroxybutyrate 10/05/18 10/05/18 10/05/18 07:33 11:39 16:33 WBC RBC Hgb Hct MCV MCH MCHC RDW Plt Count MPV Neut % (Auto) Lymph % (Auto) [place] % (Auto) Eos % (Auto) Baso % (Auto) Neut # (Auto) Lymph # (Auto) [place] # (Auto) Eos # (Auto) Baso # (Auto) pO2 VBG pH VBG pCO2 VBG HCO3 VBG Total CO2 VBG O2 Sat (Calc) VBG Base Excess VBG Potassium Sodium Chloride Glucose Lactate Crit Value Called To Crit Value Called By Crit Value Read Back Blood Gas Notified Time Potassium Carbon Dioxide Anion Gap BUN Creatinine Est GFR ( Amer) Est GFR (Non-Af Amer) POC Glucose (mg/dL) 263 H 316 H 229 H Random Glucose Hemoglobin A1c Calcium Total Bilirubin AST ALT Alkaline Phosphatase Total Protein Albumin Globulin Albumin/Globulin Ratio Lipase Venous Blood Potassium Urine Color Urine Clarity Urine pH Ur Specific [place] Urine Protein Urine Glucose (UA) Urine Ketones Urine Blood Urine Nitrate Urine Bilirubin Urine Urobilinogen Ur Leukocyte Esterase Urine WBC (Auto) Urine RBC (Auto) Ur Squamous Epith Cells Urine Bacteria B-Hydroxybutyrate Assessment & Plan (1) Diabetic complication Status: Acute (2) Hyperglycemia Status: Acute (3) Osteomyelitis Status: Acute (4) Uncontrolled diabetes mellitus Status: Acute - Assessment and Plan (Free Text) Assessment: cont iv rx await cultures possible amputation 3rd digit right foot
--- NOTE | 2018-10-05 22:02 | CP.PCM.HP ---
Present on Admission - Present on Admission Any Indicators Present on Admission: Yes History of Uncontrolled Diabetes: Yes Past Patient History - Past Social History Smoking Status: Never Smoked - CARDIAC Hx Hypertension: Yes - ENDOCRINE/METABOLIC Hx Diabetes Mellitus Type 2: Yes - MUSCULOSKELETAL/RHEUMATOLOGICAL Hx Falls: No - PSYCHIATRIC Hx Substance Use: No - SURGICAL HISTORY Hx Surgeries: No - ANESTHESIA Hx Anesthesia: Yes Hx Anesthesia Reactions: No Hx Malignant Hyperthermia: No Meds Allergies/Adverse Reactions: Allergies Allergy/AdvReac Type Severity Reaction Status Date / Time No Known Allergies Allergy Unverified 10/04/18 21:24 Results - Vital Signs Recent Vital Signs: Last Vital Signs Temp 98.8 F 10/05/18 17:15 Pulse 92 H 10/05/18 17:15 Resp 20 10/05/18 17:15 BP 142/74 10/05/18 17:15 Pulse Ox 95 10/05/18 17:15 - Labs Result Diagrams: 10/05/18 07:00 10/05/18 07:00 Labs: Laboratory Results - last 24 hr 10/04/18 10/04/18 10/04/18 22:00 22:10 22:10 WBC 11.8 H RBC 3.23 L Hgb 8.9 L Hct 28.3 L MCV 87.5 MCH 27.5 MCHC 31.4 L RDW 14.4 Plt Count 438 H MPV 9.5 Neut % (Auto) 74.1 Lymph % (Auto) 21.1 [place] % (Auto) 4.5 Eos % (Auto) 0.1 Baso % (Auto) 0.2 Neut # (Auto) 8.7 H Lymph # (Auto) 2.5 [place] # (Auto) 0.5 Eos # (Auto) 0.0 Baso # (Auto) 0.0 pO2 15 L VBG pH 7.55 H VBG pCO2 41 VBG HCO3 32.6 VBG Total CO2 37.2 H VBG O2 Sat (Calc) 41.2 VBG Base Excess 12.3 H VBG Potassium 2.9 L Sodium 130.0 L 127 L Chloride 90.0 L 82 L Glucose 413 H* Lactate 2.4 H Crit Value Called To Crit Value Called By Margy lara Crit Value Read Back Y Blood Gas Notified Time 2212 Potassium 3.3 L Carbon Dioxide 35 H Anion Gap 14 BUN 20 H Creatinine 1.0 Est GFR ( Amer) > 60 Est GFR (Non-Af Amer) 56 POC Glucose (mg/dL) Random Glucose 551 H* Hemoglobin A1c Calcium 7.9 L Total Bilirubin 0.4 AST 21 ALT 9 Alkaline Phosphatase 110 Total Protein 7.0 Albumin 3.5 Globulin 3.5 Albumin/Globulin Ratio 1.0 Lipase 62 Venous Blood Potassium 2.9 L Urine Color Urine Clarity Urine pH Ur Specific [place] Urine Protein Urine Glucose (UA) Urine Ketones Urine Blood Urine Nitrate Urine Bilirubin Urine Urobilinogen Ur Leukocyte Esterase Urine WBC (Auto) Urine RBC (Auto) Ur Squamous Epith Cells Urine Bacteria B-Hydroxybutyrate 0.32 H 10/04/18 10/04/18 10/04/18 22:10 22:17 23:49 WBC RBC Hgb Hct MCV MCH MCHC RDW Plt Count MPV Neut % (Auto) Lymph % (Auto) [place] % (Auto) Eos % (Auto) Baso % (Auto) Neut # (Auto) Lymph # (Auto) [place] # (Auto) Eos # (Auto) Baso # (Auto) pO2 VBG pH VBG pCO2 VBG HCO3 VBG Total CO2 VBG O2 Sat (Calc) VBG Base Excess VBG Potassium Sodium Chloride Glucose Lactate Crit Value Called To Crit Value Called By Crit Value Read Back Blood Gas Notified Time Potassium Carbon Dioxide Anion Gap BUN Creatinine Est GFR ( Amer) Est GFR (Non-Af Amer) POC Glucose (mg/dL) 243 H Random Glucose Hemoglobin A1c 14.2 H Calcium Total Bilirubin AST ALT Alkaline Phosphatase Total Protein Albumin Globulin Albumin/Globulin Ratio Lipase Venous Blood Potassium Urine Color Yellow Urine Clarity Clear Urine pH 7.0 Ur Specific [place] 1.018 Urine Protein Negative Urine Glucose (UA) 3+ H Urine Ketones Negative Urine Blood 1+ H Urine Nitrate Negative Urine Bilirubin Negative Urine Urobilinogen 4.0 H Ur Leukocyte Esterase 2+ H Urine WBC (Auto) 52 H Urine RBC (Auto) 5 H Ur Squamous Epith Cells 2 Urine Bacteria Occ H B-Hydroxybutyrate 10/05/18 10/05/18 10/05/18 00:30 01:00 03:41 WBC RBC Hgb Hct MCV MCH MCHC RDW Plt Count MPV Neut % (Auto) Lymph % (Auto) [place] % (Auto) Eos % (Auto) Baso % (Auto) Neut # (Auto) Lymph # (Auto) [place] # (Auto) Eos # (Auto) Baso # (Auto) pO2 24 L 42 VBG pH 7.49 H 7.48 H VBG pCO2 47 47 VBG HCO3 32.1 32.3 VBG Total CO2 37.2 H 36.4 H VBG O2 Sat (Calc) 42.5 80.5 H VBG Base Excess 10.9 H 10.0 H VBG Potassium > 20.0 H* 2.8 L Sodium 182.0 H* 135.0 Chloride 109.0 H 95.0 L Glucose 177 H 191 H Lactate 4.0 H* 2.9 H Crit Value Called To Dennis love/rn Crit Value Called By Jayson mejia/rt Crit Value Read Back Y Blood Gas Notified Time 40 Potassium Carbon Dioxide Anion Gap BUN Creatinine Est GFR ( Amer) Est GFR (Non-Af Amer) POC Glucose (mg/dL) 255 H Random Glucose Hemoglobin A1c Calcium Total Bilirubin AST ALT Alkaline Phosphatase Total Protein Albumin Globulin Albumin/Globulin Ratio Lipase Venous Blood Potassium > 20.0 H* 2.8 L Urine Color Urine Clarity Urine pH Ur Specific [place] Urine Protein Urine Glucose (UA) Urine Ketones Urine Blood Urine Nitrate Urine Bilirubin Urine Urobilinogen Ur Leukocyte Esterase Urine WBC (Auto) Urine RBC (Auto) Ur Squamous Epith Cells Urine Bacteria B-Hydroxybutyrate 10/05/18 10/05/18 10/05/18 07:00 07:00 07:33 WBC 9.9 RBC 2.85 L Hgb 8.5 L Hct 25.0 L MCV 87.4 MCH 29.7 MCHC 34.0 RDW 13.6 Plt Count 385 MPV 9.3 Neut % (Auto) Lymph % (Auto) [place] % (Auto) Eos % (Auto) Baso % (Auto) Neut # (Auto) Lymph # (Auto) [place] # (Auto) Eos # (Auto) Baso # (Auto) pO2 VBG pH VBG pCO2 VBG HCO3 VBG Total CO2 VBG O2 Sat (Calc) VBG Base Excess VBG Potassium Sodium 132 Chloride 93 L Glucose Lactate Crit Value Called To Crit Value Called By Crit Value Read Back Blood Gas Notified Time Potassium 3.1 L Carbon Dioxide 33 H Anion Gap 9 L BUN 18 H Creatinine 1.0 Est GFR ( Amer) > 60 Est GFR (Non-Af Amer) 56 POC Glucose (mg/dL) 263 H Random Glucose 250 H D Hemoglobin A1c Calcium 7.2 L Total Bilirubin AST ALT Alkaline Phosphatase Total Protein Albumin Globulin Albumin/Globulin Ratio Lipase Venous Blood Potassium Urine Color Urine Clarity Urine pH Ur Specific [place] Urine Protein Urine Glucose (UA) Urine Ketones Urine Blood Urine Nitrate Urine Bilirubin Urine Urobilinogen Ur Leukocyte Esterase Urine WBC (Auto) Urine RBC (Auto) Ur Squamous Epith Cells Urine Bacteria B-Hydroxybutyrate 10/05/18 10/05/18 10/05/18 11:39 16:33 21:07 WBC RBC Hgb Hct MCV MCH MCHC RDW Plt Count MPV Neut % (Auto) Lymph % (Auto) [place] % (Auto) Eos % (Auto) Baso % (Auto) Neut # (Auto) Lymph # (Auto) [place] # (Auto) Eos # (Auto) Baso # (Auto) pO2 VBG pH VBG pCO2 VBG HCO3 VBG Total CO2 VBG O2 Sat (Calc) VBG Base Excess VBG Potassium Sodium Chloride Glucose Lactate Crit Value Called To Crit Value Called By Crit Value Read Back Blood Gas Notified Time Potassium Carbon Dioxide Anion Gap BUN Creatinine Est GFR ( Amer) Est GFR (Non-Af Amer) POC Glucose (mg/dL) 316 H 229 H 176 H Random Glucose Hemoglobin A1c Calcium Total Bilirubin AST ALT Alkaline Phosphatase Total Protein Albumin Globulin Albumin/Globulin Ratio Lipase Venous Blood Potassium Urine Color Urine Clarity Urine pH Ur Specific [place] Urine Protein Urine Glucose (UA) Urine Ketones Urine Blood Urine Nitrate Urine Bilirubin Urine Urobilinogen Ur Leukocyte Esterase Urine WBC (Auto) Urine RBC (Auto) Ur Squamous Epith Cells Urine Bacteria B-Hydroxybutyrate
[2018-10-06] MEDS: Piperacillin/Tazobact 3.375 GM in Sodium Chloride 100 ML IVPB SCH ×4 (01:00→19:00)
--- NOTE | 2018-10-06 08:10 | HP ---
CHIEF COMPLAINT: Right foot pain. HISTORY OF PRESENT ILLNESS: This is a 63-year-old female with history of type 2 diabetes, noncompliant with diet, medication, and followup, and about 4 days ago, she developed right fourth toe ulcer with redness, pain, and open wound on the dorsum of right third toe along with that. She denies any fever, chills, or rigors. She denies any injury. She denies any nausea or vomiting. She has polyuria, polydipsia, and polyphagia. She denies any joint pain, hip pain. She has tingling and numbness in the feet. She denies any headache, dizziness, or vertigo. She denies any sneezing, itchy eyes, or itchy nose. She denies any history of abdominal pain. She denies any history of trauma, fall, or loss of consciousness. She has been noncompliant with her medications. CURRENT MEDICATIONS: At home, she is on omeprazole, Toprol, aspirin, metformin, gabapentin, and Lantus 23 units three times a day. SOCIAL HISTORY: Nonsmoker, non-EtOH user. PAST MEDICAL HISTORY: Type 2 diabetes. She denies any history of heart problem. PHYSICAL EXAMINATION: GENERAL: An elderly female in no acute distress. VITAL SIGNS: Blood pressure 142/71, pulse 92, respiratory rate 20, and temperature 98.8. SKIN: The patient has an ulcer in the dorsum of right third toe which is open 0.5 x 0.5 cm with discharge and bilateral weak peripheral pulses and dorsalis pedis in posterior tibial artery, chronic changes in the skin of the feet. HEENT: Atraumatic and normocephalic. Negative pallor. Negative jaundice. Extraocular movements are intact. NECK: Supple. No JVD. No lymph node. No thyromegaly. No carotid bruit. CHEST WALL: Bilateral symmetrical expansion. No tenderness. No deformity. LUNGS: Clear. No rales. No rhonchi. CARDIOVASCULAR SYSTEM: PMI not localized. S1 and S2, regular. No heave. No thrill. ABDOMEN: Soft and nontender. Bowel sounds are positive. RECTAL: No masses. No bruit. EXTREMITIES: No clubbing, cyanosis, or edema. CENTRAL NERVOUS SYSTEM: Awake, alert, and oriented x3. Cranial nerves II through XII are normal. Power 5/5 x4. Plantars are downgoing, and she has decreased position and vibration sense in the feet. ASSESSMENT: 1. Poorly controlled diabetes with peripheral neuropathy. 2. Right foot ulcer on third toe. 3. Rule out peripheral arterial disease. 4. Dehydration. PLAN: Admit. The patient has been admitted. She has been started on IV antibiotics. Podiatry consult, vascular studies have been requested. The patient will need more workup depending on podiatry's evaluation, and the patient will be followed closely. In the meantime, she will be maintained on Zosyn and vancomycin, and she will be monitored closely. Dago Sanchez MD
[2018-10-06] MEDS: (Novolin R) Insulin Human Regular 100 units/ml vial SC SCH ×4 (08:15→21:43)
[2018-10-06] MEDS: Sodium Chloride 0.9% 1,000 ML IV SCH (08:17)
[2018-10-06 08:24] LABS: IRON 16 ug/dL (37-170)
[2018-10-06 08:34] LABS: BLOOD UREA NITROGEN 12 mg/dL (7-17); CALCIUM 7.6 mg/dl (8.6-10.4); GFR NON-AFRICAN AMERICAN 50
[2018-10-06 08:53] LABS: % IRON SATURATION 8 (20-55); TOTAL IRON BINDING CAPACITY 200 ug/dL (250-450)
[2018-10-06] MEDS: Metoprolol Succinate 25 mg XL Tab PO SCH (10:27)
[2018-10-06] MEDS: (Lantus) Insulin Glargine, Recombinant SC SCH ×2 (10:27→17:54)
[2018-10-06] MEDS: Pantoprazole 20 mg EC Tab PO SCH (10:27)
[2018-10-06] MEDS: Enoxaparin 40 mg Syringe SC SCH (10:27)
[2018-10-06] MEDS: Dakin's Topical 0.5%-Full Strength (480 ml) TOP SCH (11:00)
--- NOTE | 2018-10-06 12:16 | CP.PCM.PN ---
Subjective - Date & Time of Evaluation Date of Evaluation: 10/06/18 Time of Evaluation: 12:13 - Subjective Subjective: Podiatry Progress Note: Dr. Saldivar 63 year old female patient was seen and evaluated at bedside for right foot 3rd digit cellulitis with underlying OM. Patient is AAOX3 and appears in NAD. Denies of any pain to the digit today. Reports that she would like to have moth exterminator abx and denies to have any form of amputation at this time. Denies of having any acute overnight events. Denies of any recent F/N/V/C/SOB/CP/headache. No other pedal complains at this time. Objective - Vital Signs/Intake and Output Vital Signs (last 24 hours): Temp Pulse Resp BP Pulse Ox 98.1 F 95 H 20 142/83 95 10/06/18 08:20 10/06/18 08:20 10/06/18 08:20 10/06/18 08:20 10/06/18 08:20 Intake and Output: 10/06/18 10/06/18 06:59 18:59 Intake Total 1200 970 Balance 1200 970 - Medications Medications: Current Medications Acetaminophen (Tylenol 325mg Tab) 650 mg PO Q6 PRN PRN Reason: Fever >100.4 F Aspirin (Ecotrin) 81 mg PO DAILY [facility] Last Admin: 10/06/18 10:27 Dose: 81 mg Enoxaparin Sodium (Lovenox) 40 mg SC DAILY [facility] Last Admin: 10/06/18 10:27 Dose: 40 mg Gabapentin (Neurontin) 300 mg PO TID [facility] Last Admin: 10/06/18 10:27 Dose: 300 mg Sodium Chloride (Sodium Chloride 0.9%) 1,000 mls @ 100 mls/hr IV .Q10H [facility] Last Admin: 10/06/18 08:17 Dose: Not Given Vancomycin HCl 1,000 mg/ (Sodium Chloride) 250 mls @ 166.6 mls/hr IVPB Q12H [facility]; Protocol Last Admin: 10/06/18 01:55 Dose: 166.6 mls/hr Piperacillin Sod/Tazobactam (Sod 3.375 gm/ Sodium Chloride) 100 mls @ 200 mls/hr IVPB Q6H [facility]; Protocol Last Admin: 10/06/18 06:18 Dose: 200 mls/hr Insulin Glargine (Lantus) 28 unit SC BID [facility] Last Admin: 10/06/18 10:27 Dose: 28 units Insulin Human Regular (Novolin R) 0 unit SC ACHS [facility]; Protocol Last Admin: 10/06/18 08:15 Dose: Not Given Metformin HCl (Glucophage) 1,000 mg PO BID [facility] Last Admin: 10/06/18 10:27 Dose: 1,000 mg Metoprolol Succinate (Toprol Xl) 25 mg PO DAILY [facility] Last Admin: 10/06/18 10:27 Dose: 25 mg Pantoprazole Sodium (Protonix Ec Tab) 20 mg PO DAILY [facility] Last Admin: 10/06/18 10:27 Dose: 20 mg Pneumococcal Polyvalent Vaccine (Pneumovax 23 Vaccine) 0.5 ml IM .ONCE ONE Stop: 10/07/18 10:01 Sodium Hypochlorite (Dakins Solution 0.5%) 10 ml TOP DAILY [facility] Tramadol HCl (Ultram) 50 mg PO TID PRN PRN Reason: Pain, moderate (4-7) - Labs Labs: 10/05/18 07:00 10/06/18 08:04 - Constitutional Appears: Well, Non-toxic, No Acute Distress - Extremities Exam Additional comments: RLE focused exam: VASC: DP/PT pulses are palpable 2/4, Cap refill time: < 3 sec to all digits, Temp gradient: warm to cool from proximal to distal with increasing temp gradient localized to 3rd digit, non pitting edema accompanied with erythema localized to the right foot 3rd digit DERM: hyperkeratotic lesion at the level of proximal interphalangeal joint measuring approx 0.5cmx0.2cmx0.2cm noted with a central opening, very minimal purulent drainage upon palpation, no malodor, no tunneling, no undermining, no tracking, periwound erythema NEURO: Protective sensation grossly intact ORTHO: Pain on palpation of the 3rd digit, MMT: 5/5 in all 4 direction at the - Neurological Exam Neurological Exam: Alert, Awake, Oriented x3 - Psychiatric Exam Psychiatric exam: Normal Affect, Normal Mood Assessment and Plan - Assessment and Plan (Free Text) Assessment: 63 year old female evaluated for right 3rd digit cellulitis with underlying OM Plan: Patient seen and evaluated Discussed plan with attending Dr. Saldivar Labs vitals and charts reviewed - VSS, WBC@9.9 (2/6) (decreased from day before 11.8) RLE CT evaluated: ramon erosion with cortical bone destruction noted at the DIPJ of the 3rd digit consistent with OM Wound cultures taken - G+ cocci ID consult - recs appreciated - Abx as per ID At this time, patient given option of possible amputation vs abx - patient opting to have abx - Discussed with patient of possible risks, benefits and complications of both options and chooses to have moth exterminator abx - [employer] were utilized during this conversation Wound cleaned with saline and dressing applied with Dakins solution DSD Sx shoe ordered - FWB to the RLE using shoe Patient denies of having any form of surgical intervention at this time, will require chcf IV abx - plan for a PICC No plan for surgical intervention at this time Will continue to follow patient while in-house
--- NOTE | 2018-10-06 19:32 | CP.PCM.PN ---
Subjective - Date & Time of Evaluation Date of Evaluation: 10/06/18 Time of Evaluation: 09:00 - Subjective Subjective: appears to be refusing surgical option IV rx renewed Objective - Vital Signs/Intake and Output Vital Signs (last 24 hours): Temp Pulse Resp BP Pulse Ox 98.2 F 88 20 159/87 H 99 10/06/18 16:12 10/06/18 16:12 10/06/18 16:12 10/06/18 16:12 10/06/18 16:12 Intake and Output: 10/06/18 10/07/18 18:59 06:59 Intake Total 2300 Balance 2300 - Medications Medications: Current Medications Acetaminophen (Tylenol 325mg Tab) 650 mg PO Q6 PRN PRN Reason: Fever >100.4 F Aspirin (Ecotrin) 81 mg PO DAILY [facility] Last Admin: 10/06/18 10:27 Dose: 81 mg Enoxaparin Sodium (Lovenox) 40 mg SC DAILY [facility] Last Admin: 10/06/18 10:27 Dose: 40 mg Gabapentin (Neurontin) 300 mg PO TID [facility] Last Admin: 10/06/18 17:54 Dose: 300 mg Vancomycin HCl 1,000 mg/ (Sodium Chloride) 250 mls @ 166.6 mls/hr IVPB Q12H [facility]; Protocol Last Admin: 10/06/18 14:15 Dose: 166.6 mls/hr Piperacillin Sod/Tazobactam (Sod 3.375 gm/ Sodium Chloride) 100 mls @ 200 mls/hr IVPB Q6H [facility]; Protocol Last Admin: 10/06/18 19:00 Dose: 200 mls/hr Influenza Virus Vaccine (Flucelvax Quad [id number] Syr) 60 mcg IM .ONCE ONE Stop: 10/07/18 10:01 Insulin Glargine (Lantus) 28 unit SC BID [facility] Last Admin: 10/06/18 17:54 Dose: 28 units Insulin Human Regular (Novolin R) 0 unit SC ACHS [facility]; Protocol Last Admin: 10/06/18 17:54 Dose: 8 units Metformin HCl (Glucophage) 1,000 mg PO BID [facility] Last Admin: 10/06/18 17:53 Dose: 1,000 mg Metoprolol Succinate (Toprol Xl) 25 mg PO DAILY [facility] Last Admin: 10/06/18 10:27 Dose: 25 mg Pantoprazole Sodium (Protonix Ec Tab) 20 mg PO DAILY [facility] Last Admin: 10/06/18 10:27 Dose: 20 mg Pneumococcal Polyvalent Vaccine (Pneumovax 23 Vaccine) 0.5 ml IM .ONCE ONE Stop: 10/07/18 10:01 Sodium Hypochlorite (Dakins Solution 0.5%) 10 ml TOP DAILY [facility] Last Admin: 10/06/18 11:00 Dose: Not Given Tramadol HCl (Ultram) 50 mg PO TID PRN PRN Reason: Pain, moderate (4-7) - Labs Labs: 10/05/18 07:00 10/06/18 08:04 - Constitutional Appears: Well - Head Exam Head Exam: ATRAUMATIC, NORMAL INSPECTION, NORMOCEPHALIC - Eye Exam Eye Exam: EOMI, Normal appearance, PERRL Pupil Exam: NORMAL ACCOMODATION, PERRL - ENT Exam ENT Exam: Mucous Membranes Moist, Normal Exam - Neck Exam Neck Exam: Full ROM, Normal Inspection. absent: Lymphadenopathy - Respiratory Exam Respiratory Exam: Clear to Ausculation Bilateral, NORMAL BREATHING PATTERN - Cardiovascular Exam Cardiovascular Exam: REGULAR RHYTHM, +S1, +S2. absent: Murmur - GI/Abdominal Exam GI & Abdominal Exam: Soft, Normal Bowel Sounds. absent: Tenderness - Rectal Exam Rectal Exam: Deferred - Exam Bimanual exam: NORMAL BIMANUAL EXAM - Extremities Exam Extremities Exam: Full ROM, Normal Capillary Refill, Normal Inspection. absent: Joint Swelling, Pedal Edema - Back Exam Back Exam: NORMAL INSPECTION - Neurological Exam Neurological Exam: Alert, Awake, CN II-XII Intact, Normal Gait, Oriented x3 - Psychiatric Exam Psychiatric exam: Normal Affect, Normal Mood - Skin Skin Exam: Dry Additional comments: infected toe right foot + Assessment and Plan - Assessment and Plan (Free Text) Assessment: cont iv rx for 6 weeks needs PICC
--- NOTE | 2018-10-06 21:40 | CP.PCM.PN ---
Subjective - Date & Time of Evaluation Date of Evaluation: 10/06/18 Time of Evaluation: 10:20 - Subjective Subjective: dictated Objective - Vital Signs/Intake and Output Vital Signs (last 24 hours): Temp Pulse Resp BP Pulse Ox 98.2 F 82 20 145/69 99 10/06/18 16:12 10/06/18 21:16 10/06/18 16:12 10/06/18 21:16 10/06/18 16:12 Intake and Output: 10/06/18 10/07/18 18:59 06:59 Intake Total 2300 Balance 2300 - Medications Medications: Current Medications Acetaminophen (Tylenol 325mg Tab) 650 mg PO Q6 PRN PRN Reason: Fever >100.4 F Aspirin (Ecotrin) 81 mg PO DAILY [facility] Last Admin: 10/06/18 10:27 Dose: 81 mg Enoxaparin Sodium (Lovenox) 40 mg SC DAILY [facility] Last Admin: 10/06/18 10:27 Dose: 40 mg Gabapentin (Neurontin) 300 mg PO TID [facility] Last Admin: 10/06/18 17:54 Dose: 300 mg Vancomycin HCl 1,000 mg/ (Sodium Chloride) 250 mls @ 166.6 mls/hr IVPB Q12H [facility]; Protocol Last Admin: 10/06/18 14:15 Dose: 166.6 mls/hr Piperacillin Sod/Tazobactam (Sod 3.375 gm/ Sodium Chloride) 100 mls @ 200 mls/hr IVPB Q6H [facility]; Protocol Last Admin: 10/06/18 19:00 Dose: 200 mls/hr Influenza Virus Vaccine (Flucelvax Quad [id number] Syr) 60 mcg IM .ONCE ONE Stop: 10/07/18 10:01 Insulin Glargine (Lantus) 28 unit SC BID [facility] Last Admin: 10/06/18 17:54 Dose: 28 units Insulin Human Regular (Novolin R) 0 unit SC ACHS [facility]; Protocol Last Admin: 10/06/18 17:54 Dose: 8 units Metformin HCl (Glucophage) 1,000 mg PO BID [facility] Last Admin: 10/06/18 17:53 Dose: 1,000 mg Metoprolol Succinate (Toprol Xl) 25 mg PO DAILY [facility] Last Admin: 10/06/18 10:27 Dose: 25 mg Pantoprazole Sodium (Protonix Ec Tab) 20 mg PO DAILY [facility] Last Admin: 10/06/18 10:27 Dose: 20 mg Pneumococcal Polyvalent Vaccine (Pneumovax 23 Vaccine) 0.5 ml IM .ONCE ONE Stop: 10/07/18 10:01 Sodium Hypochlorite (Dakins Solution 0.5%) 10 ml TOP DAILY [facility] Last Admin: 10/06/18 11:00 Dose: Not Given Tramadol HCl (Ultram) 50 mg PO TID PRN PRN Reason: Pain, moderate (4-7) - Labs Labs: 10/05/18 07:00 10/06/18 08:04
[2018-10-07] MEDS: Piperacillin/Tazobact 3.375 GM in Sodium Chloride 100 ML IVPB SCH ×4 (00:05→18:56)
--- NOTE | 2018-10-07 02:21 | PN ---
DATE: 10/06/2018 SUBJECTIVE: The patient is feeling better. She has right third toe infection with open ulcer. No fever. No chills. No nausea or vomiting. PHYSICAL EXAMINATION: VITAL SIGNS: Blood pressure 159/87, pulse 58, respiratory rate 20, and temperature 98.2. LUNGS: Clear. CVS: S1, S2. Regular. ABDOMEN: Soft. ASSESSMENT: 1. Poorly controlled diabetes. 2. Hypertension. 3. Right foot infection. PLAN: Antibiotics. The patient refused amputation of right third toe. We will monitor the patient and discuss with Podiatry about the plan of care. Dago Sanchez MD
[2018-10-07] MEDS: (Novolin R) Insulin Human Regular 100 units/ml vial SC SCH ×4 (07:49→21:44)
[2018-10-07] MEDS ORDERED: Influenza Vaccine 60 mcg/0.5 mL SYR (4YR UP) IM ONE ×2 (10:00→11:30)
[2018-10-07] MEDS ORDERED: Pneumococcal 23-Valent Vaccine IM ONE ×2 (10:00→11:30)
[2018-10-07] MEDS: Pantoprazole 20 mg EC Tab PO SCH (10:51)
[2018-10-07] MEDS: (Lantus) Insulin Glargine, Recombinant SC SCH ×2 (10:52→17:19)
[2018-10-07] MEDS: Enoxaparin 40 mg Syringe SC SCH (10:52)
[2018-10-07] MEDS: Metoprolol Succinate 25 mg XL Tab PO SCH (11:02)
[2018-10-07] MEDS: Dakin's Topical 0.5%-Full Strength (480 ml) TOP SCH (12:12)
--- NOTE | 2018-10-07 12:45 | CP.PCM.PN ---
Subjective - Date & Time of Evaluation Date of Evaluation: 10/07/18 Time of Evaluation: 12:43 - Subjective Subjective: Pt seen at bedside for right 3rd digit ulcer/osteo. Pt does not want any sx intervention/amputation. Pt wants detention iv abx. Pt should go to [facility] with local wound care for now. Objective - Vital Signs/Intake and Output Vital Signs (last 24 hours): Temp Pulse Resp BP Pulse Ox 98.5 F 86 20 167/82 H 97 10/07/18 07:00 10/07/18 07:00 10/07/18 07:00 10/07/18 07:00 10/07/18 07:00 Intake and Output: 10/07/18 10/07/18 06:59 18:59 Intake Total 1190 Balance 1190 - Medications Medications: Current Medications Acetaminophen (Tylenol 325mg Tab) 650 mg PO Q6 PRN PRN Reason: Fever >100.4 F Aspirin (Ecotrin) 81 mg PO DAILY [facility] Last Admin: 10/07/18 10:51 Dose: 81 mg Enoxaparin Sodium (Lovenox) 40 mg SC DAILY [facility] Last Admin: 10/07/18 10:52 Dose: 40 mg Gabapentin (Neurontin) 300 mg PO TID [facility] Last Admin: 10/07/18 10:51 Dose: 300 mg Vancomycin HCl 1,000 mg/ (Sodium Chloride) 250 mls @ 166.6 mls/hr IVPB Q12H [facility]; Protocol Last Admin: 10/07/18 12:16 Dose: 166.6 mls/hr Piperacillin Sod/Tazobactam (Sod 3.375 gm/ Sodium Chloride) 100 mls @ 200 mls/hr IVPB Q6H [facility]; Protocol Last Admin: 10/07/18 12:07 Dose: 200 mls/hr Insulin Glargine (Lantus) 28 unit SC BID [facility] Last Admin: 10/07/18 10:52 Dose: 28 units Insulin Human Regular (Novolin R) 0 unit SC ACHS [facility]; Protocol Last Admin: 10/07/18 11:44 Dose: 3 units Metformin HCl (Glucophage) 1,000 mg PO BID [facility] Last Admin: 10/07/18 10:51 Dose: 1,000 mg Metoprolol Succinate (Toprol Xl) 25 mg PO DAILY [facility] Last Admin: 10/07/18 11:02 Dose: 25 mg Pantoprazole Sodium (Protonix Ec Tab) 20 mg PO DAILY [facility] Last Admin: 10/07/18 10:51 Dose: 20 mg Sodium Hypochlorite (Dakins Solution 0.5%) 10 ml TOP DAILY [facility] Last Admin: 10/07/18 12:12 Dose: 1 applic Tramadol HCl (Ultram) 50 mg PO TID PRN PRN Reason: Pain, moderate (4-7) - Labs Labs: 10/05/18 07:00 10/06/18 08:04
--- NOTE | 2018-10-07 19:12 | CP.PCM.PN ---
Subjective - Date & Time of Evaluation Date of Evaluation: 10/07/18 Time of Evaluation: 08:00 - Subjective Subjective: refusing amputation afebrile Objective - Vital Signs/Intake and Output Vital Signs (last 24 hours): Temp Pulse Resp BP Pulse Ox 99.5 F 89 20 166/92 H 95 10/07/18 16:00 10/07/18 16:00 10/07/18 16:00 10/07/18 16:00 10/07/18 16:00 Intake and Output: 10/07/18 10/08/18 18:59 06:59 Intake Total 850 Balance 850 - Medications Medications: Current Medications Acetaminophen (Tylenol 325mg Tab) 650 mg PO Q6 PRN PRN Reason: Fever >100.4 F Aspirin (Ecotrin) 81 mg PO DAILY [facility] Last Admin: 10/07/18 10:51 Dose: 81 mg Enoxaparin Sodium (Lovenox) 40 mg SC DAILY [facility] Last Admin: 10/07/18 10:52 Dose: 40 mg Ferrous Sulfate (Feosol) 325 mg PO BID [facility] Last Admin: 10/07/18 17:38 Dose: 325 mg Gabapentin (Neurontin) 300 mg PO TID [facility] Last Admin: 10/07/18 17:19 Dose: 300 mg Vancomycin HCl 1,000 mg/ (Sodium Chloride) 250 mls @ 166.6 mls/hr IVPB Q12H [facility]; Protocol Last Admin: 10/07/18 12:16 Dose: 166.6 mls/hr Piperacillin Sod/Tazobactam (Sod 3.375 gm/ Sodium Chloride) 100 mls @ 200 mls/hr IVPB Q6H [facility]; Protocol Last Admin: 10/07/18 18:56 Dose: 200 mls/hr Insulin Glargine (Lantus) 20 unit SC BID [facility] Insulin Human Regular (Novolin R) 0 unit SC ACHS [facility]; Protocol Last Admin: 10/07/18 17:19 Dose: Not Given Metformin HCl (Glucophage) 1,000 mg PO BID [facility] Last Admin: 10/07/18 17:18 Dose: Not Given Metoprolol Succinate (Toprol Xl) 25 mg PO DAILY [facility] Last Admin: 10/07/18 11:02 Dose: 25 mg Pantoprazole Sodium (Protonix Ec Tab) 20 mg PO DAILY [facility] Last Admin: 02/08/19 10:51 Dose: 20 mg Sodium Hypochlorite (Dakins Solution 0.5%) 10 ml TOP DAILY [facility] Last Admin: 10/07/18 12:12 Dose: 1 applic Tramadol HCl (Ultram) 50 mg PO TID PRN PRN Reason: Pain, moderate (4-7) Last Admin: 10/07/18 17:38 Dose: 50 mg - Labs Labs: 10/05/18 07:00 10/06/18 08:04 - Constitutional Appears: Non-toxic, Chronically Ill - Head Exam Head Exam: NORMOCEPHALIC - Eye Exam Eye Exam: absent: Scleral icterus - ENT Exam ENT Exam: Mucous Membranes Dry - Neck Exam Neck Exam: absent: Lymphadenopathy - Respiratory Exam Respiratory Exam: Decreased Breath Sounds - Cardiovascular Exam Cardiovascular Exam: REGULAR RHYTHM - GI/Abdominal Exam GI & Abdominal Exam: Distended, Soft - Rectal Exam Rectal Exam: Deferred - Exam Exam: NORMAL INSPECTION - Extremities Exam Extremities Exam: Pedal Edema - Back Exam Back Exam: absent: CVA tenderness (R), NORMAL INSPECTION - Neurological Exam Neurological Exam: Alert, Awake Assessment and Plan - Assessment and Plan (Free Text) Assessment: cont iv rx for 6 weeks needs PICC
--- NOTE | 2018-10-07 21:32 | CP.PCM.PN ---
Subjective - Date & Time of Evaluation Date of Evaluation: 10/07/18 Time of Evaluation: 19:20 - Subjective Subjective: dictated Objective - Vital Signs/Intake and Output Vital Signs (last 24 hours): Temp Pulse Resp BP Pulse Ox 99.5 F 89 20 166/92 H 95 10/07/18 16:00 10/07/18 16:00 10/07/18 16:00 10/07/18 16:00 10/07/18 16:00 Intake and Output: 10/07/18 10/08/18 18:59 06:59 Intake Total 850 Balance 850 - Medications Medications: Current Medications Acetaminophen (Tylenol 325mg Tab) 650 mg PO Q6 PRN PRN Reason: Fever >100.4 F Aspirin (Ecotrin) 81 mg PO DAILY [facility] Last Admin: 10/07/18 10:51 Dose: 81 mg Enoxaparin Sodium (Lovenox) 40 mg SC DAILY [facility] Last Admin: 10/07/18 10:52 Dose: 40 mg Ferrous Sulfate (Feosol) 325 mg PO BID [facility] Last Admin: 10/07/18 17:38 Dose: 325 mg Gabapentin (Neurontin) 300 mg PO TID [facility] Last Admin: 10/07/18 17:19 Dose: 300 mg Vancomycin HCl 1,000 mg/ (Sodium Chloride) 250 mls @ 166.6 mls/hr IVPB Q12H [facility]; Protocol Last Admin: 10/07/18 12:16 Dose: 166.6 mls/hr Piperacillin Sod/Tazobactam (Sod 3.375 gm/ Sodium Chloride) 100 mls @ 200 mls/hr IVPB Q6H [facility]; Protocol Last Admin: 10/07/18 18:56 Dose: 200 mls/hr Insulin Glargine (Lantus) 20 unit SC BID [facility] Insulin Human Regular (Novolin R) 0 unit SC ACHS [facility]; Protocol Last Admin: 10/07/18 17:19 Dose: Not Given Metformin HCl (Glucophage) 1,000 mg PO BID [facility] Last Admin: 10/07/18 17:18 Dose: Not Given Metoprolol Succinate (Toprol Xl) 25 mg PO DAILY [facility] Last Admin: 10/07/18 11:02 Dose: 25 mg Pantoprazole Sodium (Protonix Ec Tab) 20 mg PO DAILY [facility] Last Admin: 10/07/18 10:51 Dose: 20 mg Sodium Hypochlorite (Dakins Solution 0.5%) 10 ml TOP DAILY [facility] Last Admin: 10/07/18 12:12 Dose: 1 applic Tramadol HCl (Ultram) 50 mg PO TID PRN PRN Reason: Pain, moderate (4-7) Last Admin: 10/07/18 17:38 Dose: 50 mg - Labs Labs: 10/05/18 07:00 10/06/18 08:04
[2018-10-08] MEDS: Piperacillin/Tazobact 3.375 GM in Sodium Chloride 100 ML IVPB SCH ×4 (00:49→18:28)
--- NOTE | 2018-10-08 02:04 | PN ---
DATE: 10/07/2018 SUBJECTIVE: Mrs. Hermelinda Gee is a refusing amputation of right third toe. She is afebrile. She is on antibiotics. Her blood pressure is elevated. No fever. No chills. No nausea or vomiting. She denies any diarrhea. She denies any cough, sore throat, or runny nose. She is on antibiotics. PHYSICAL EXAMINATION: EXTREMITIES: Right third toe has open ulcer on the dorsum. LUNGS: Clear. ABDOMEN: Soft and nontender. Bowel sounds are positive. CENTRAL NERVOUS SYSTEM: Awake, alert, and oriented x3. ASSESSMENT: 1. Osteomyelitis of right third toe. 2. Type 2 diabetes. 3. Hypertension. 4. Hyperlipidemia. PLAN: The patient refused amputation. She agreed for antibiotics, custodial. Continue antibiotics. Monitor patient. Dago Sanchez MD
[2018-10-08] MEDS: Vancomycin 1 gm/NS 200 ml 1 GM/200 ML BAG IVPB SCH ×2 (05:27→16:39)
[2018-10-08] MEDS: (Novolin R) Insulin Human Regular 100 units/ml vial SC SCH ×4 (08:23→21:56)
[2018-10-08] MEDS: Metoprolol Succinate 25 mg XL Tab PO SCH (10:48)
[2018-10-08] MEDS: (Lantus) Insulin Glargine, Recombinant SC SCH ×2 (10:49→17:11)
[2018-10-08] MEDS: Enoxaparin 40 mg Syringe SC SCH (10:49)
[2018-10-08] MEDS: Pantoprazole 20 mg EC Tab PO SCH (10:49)
[2018-10-08] MEDS: Dakin's Topical 0.5%-Full Strength (480 ml) TOP SCH (10:50)
--- NOTE | 2018-10-08 18:15 | CP.PCM.PN ---
Subjective - Date & Time of Evaluation Date of Evaluation: 10/08/18 Time of Evaluation: 14:10 - Subjective Subjective: Podiatry Progress Note: Dr. Saldivar 63 year old female patient was seen and evaluated at bedside for right foot 3rd digit cellulitis with underlying OM. Patient is AAOX3 and appears in NAD. Patient states that she has only minimal pain at her toe today. She denies of having any acute overnight events. She denies of any overnight F/N/V/C /SOB/CP/headache. She denies any other pedal complains at this time. Objective - Vital Signs/Intake and Output Vital Signs (last 24 hours): Temp Pulse Resp BP Pulse Ox 97.8 F 81 20 140/78 98 10/08/18 16:27 10/08/18 16:27 10/08/18 16:27 10/08/18 16:27 10/08/18 16:27 Intake and Output: 10/08/18 10/08/18 06:59 18:59 Intake Total 650 1270 Balance 650 1270 - Medications Medications: Current Medications Acetaminophen (Tylenol 325mg Tab) 650 mg PO Q6 PRN PRN Reason: Fever >100.4 F Aspirin (Ecotrin) 81 mg PO DAILY [facility] Last Admin: 10/08/18 10:49 Dose: 81 mg Enoxaparin Sodium (Lovenox) 40 mg SC DAILY [facility] Last Admin: 10/08/18 10:49 Dose: 40 mg Ferrous Sulfate (Feosol) 325 mg PO BID [facility] Last Admin: 10/08/18 17:11 Dose: 325 mg Gabapentin (Neurontin) 300 mg PO TID [facility] Last Admin: 10/08/18 17:12 Dose: 300 mg Piperacillin Sod/Tazobactam (Sod 3.375 gm/ Sodium Chloride) 100 mls @ 200 mls/hr IVPB Q6H [facility]; Protocol Last Admin: 10/08/18 12:59 Dose: 200 mls/hr Vancomycin/Sodium Chloride (Vancomycin 1 Gm/Ns 200 Ml) 1 gm in 200 mls @ 133.333 mls/hr IVPB Q12H [facility]; Protocol Stop: 10/10/18 01:16 Last Admin: 10/08/18 16:39 Dose: 133.333 mls/hr Insulin Glargine (Lantus) 20 unit SC BID [facility] Last Admin: 10/08/18 17:11 Dose: 20 units Insulin Human Regular (Novolin R) 0 unit SC ACHS [facility]; Protocol Last Admin: 10/08/18 16:42 Dose: 3 units Losartan Potassium (Cozaar) 50 mg PO DAILY [facility] Last Admin: 10/08/18 10:49 Dose: 50 mg Metformin HCl (Glucophage) 1,000 mg PO BID [facility] Last Admin: 10/08/18 17:12 Dose: 1,000 mg Metoprolol Succinate (Toprol Xl) 25 mg PO DAILY [facility] Last Admin: 10/08/18 10:48 Dose: 25 mg Pantoprazole Sodium (Protonix Ec Tab) 20 mg PO DAILY [facility] Last Admin: 10/08/18 10:49 Dose: 20 mg Sodium Hypochlorite (Dakins Solution 0.5%) 10 ml TOP DAILY [facility] Last Admin: 10/08/18 10:50 Dose: 1 applic Tramadol HCl (Ultram) 50 mg PO TID PRN PRN Reason: Pain, moderate (4-7) Last Admin: 10/08/18 00:57 Dose: 50 mg - Labs Labs: 10/05/18 07:00 10/06/18 08:04 - Constitutional Appears: Well, Non-toxic, No Acute Distress - Head Exam Head Exam: ATRAUMATIC, NORMOCEPHALIC - Extremities Exam Additional comments: RLE focused exam: VASC: DP/PT pulses are palpable 2/4, Cap refill time: < 3 sec to all digits, Temp gradient: warm to cool from proximal to distal with increasing temp gradient localized to 3rd digit, non pitting edema accompanied with erythema localized to the right foot 3rd digit. NEURO: Protective sensation grossly intact DERM: Small hyperkeratotic lesion at the level of proximal interphalangeal joint measuring approx 0.4cmx0.2cmx0.2cm noted with a central opening, very minimal purulent drainage upon palpation, no malodor, no tunneling, no undermining, no tracking or periwound erythema, Positive probe to bone. MSK: Pain on palpation of the 3rd digit, MMT: 5/5 in all 4 direction at the - Neurological Exam Neurological Exam: Alert, Awake, Oriented x3 - Psychiatric Exam Psychiatric exam: Normal Affect, Normal Mood Assessment and Plan - Assessment and Plan (Free Text) Assessment: 63 year old female evaluated for right 3rd digit cellulitis with underlying OM Plan: Patient seen and evaluated at the bedside Discussed plan with attending Dr. Saldivar Labs vitals and charts reviewed ; VSS, WBC@9.9 (2/6) (decreased from day before 11.8) RLE CT evaluated: ramon erosion with cortical bone destruction noted at the DIPJ of the 3rd digit consistent with OM Wound cultures taken - G+ cocci ID consult - recs appreciated - Abx as per ID At this time, patient given option of possible amputation vs abx - patient opting to have abx - Discussed with patient of possible risks, benefits and complications of both options and chooses to have usp abx - Process Plant Operator services were utilized during this conversation Wound cleaned with saline and dressing applied with Dakins solution DSD Sx shoe ordered; FWB to the RLE using shoe Patient denies of having any form of surgical intervention at this time, will require exterminator IV abx - plan for a PICC No plan for surgical intervention at this time Podiatry will continue to follow up the patient while in-house
[2018-10-09] MEDS: Piperacillin/Tazobact 3.375 GM in Sodium Chloride 100 ML IVPB SCH ×4 (00:30→19:41)
[2018-10-09] MEDS: Vancomycin 1 gm/NS 200 ml 1 GM/200 ML BAG IVPB SCH (04:12)
[2018-10-09] MEDS: (Novolin R) Insulin Human Regular 100 units/ml vial SC SCH ×4 (08:30→21:49)
[2018-10-09] MEDS: Metoprolol Succinate 25 mg XL Tab PO SCH (09:49)
[2018-10-09] MEDS: Enoxaparin 40 mg Syringe SC SCH (09:49)
[2018-10-09] MEDS: Pantoprazole 20 mg EC Tab PO SCH (09:50)
[2018-10-09] MEDS: Dakin's Topical 0.5%-Full Strength (480 ml) TOP SCH (09:50)
[2018-10-09] MEDS: (Lantus) Insulin Glargine, Recombinant SC SCH ×2 (10:36→17:23)
--- NOTE | 2018-10-09 13:21 | CP.PCM.PN ---
Subjective - Date & Time of Evaluation Date of Evaluation: 10/09/18 Time of Evaluation: 13:18 - Subjective Subjective: Podiatry Progress Note: Dr. Saldivar 63 year old female patient was seen and evaluated at bedside for right foot 3rd digit cellulitis with underlying OM. Patient is AAOX3 and appears in NAD. Patient states that she has only minimal pain at her toe today. She denies of having any acute overnight events. She denies of any overnight F/N/V/ C/SOB/CP/headache. She denies any other pedal complains at this time. Objective - Vital Signs/Intake and Output Vital Signs (last 24 hours): Temp Pulse Resp BP Pulse Ox 97.9 F 80 20 160/84 H 96 10/09/18 08:16 10/09/18 08:16 10/09/18 08:16 10/09/18 08:16 10/09/18 08:16 Intake and Output: 10/09/18 10/09/18 06:59 18:59 Intake Total 780 520 Balance 780 520 - Medications Medications: Current Medications Acetaminophen (Tylenol 325mg Tab) 650 mg PO Q6 PRN PRN Reason: Fever >100.4 F Aspirin (Ecotrin) 81 mg PO DAILY [facility] Last Admin: 10/09/18 09:50 Dose: 81 mg Enoxaparin Sodium (Lovenox) 40 mg SC DAILY [facility] Last Admin: 10/09/18 09:49 Dose: 40 mg Ferrous Sulfate (Feosol) 325 mg PO BID [facility] Last Admin: 10/09/18 09:49 Dose: 325 mg Gabapentin (Neurontin) 300 mg PO TID [facility] Last Admin: 10/09/18 09:50 Dose: 300 mg Piperacillin Sod/Tazobactam (Sod 3.375 gm/ Sodium Chloride) 100 mls @ 200 mls/hr IVPB Q6H [facility]; Protocol Last Admin: 10/09/18 06:03 Dose: 200 mls/hr Vancomycin/Sodium Chloride (Vancomycin 1 Gm/Ns 200 Ml) 1 gm in 200 mls @ 133.333 mls/hr IVPB Q12H [facility]; Protocol Stop: 10/10/18 01:16 Last Admin: 10/09/18 04:12 Dose: 133.333 mls/hr Insulin Glargine (Lantus) 20 unit SC BID [facility] Last Admin: 10/09/18 10:36 Dose: 20 units Insulin Human Regular (Novolin R) 0 unit SC ACHS [facility]; Protocol Last Admin: 10/09/18 12:30 Dose: 3 units Losartan Potassium (Cozaar) 50 mg PO DAILY [facility] Last Admin: 10/09/18 09:50 Dose: 50 mg Metformin HCl (Glucophage) 1,000 mg PO BID [facility] Last Admin: 10/09/18 09:49 Dose: 1,000 mg Metoprolol Succinate (Toprol Xl) 25 mg PO DAILY [facility] Last Admin: 10/09/18 09:49 Dose: 25 mg Pantoprazole Sodium (Protonix Ec Tab) 20 mg PO DAILY [facility] Last Admin: 10/09/18 09:50 Dose: 20 mg Sodium Hypochlorite (Dakins Solution 0.5%) 10 ml TOP DAILY [facility] Last Admin: 10/09/18 09:50 Dose: 1 applic Tramadol HCl (Ultram) 50 mg PO TID PRN PRN Reason: Pain, moderate (4-7) Last Admin: 10/08/18 00:57 Dose: 50 mg - Labs Labs: 10/05/18 07:00 10/06/18 08:04 - Constitutional Appears: Well, Non-toxic, No Acute Distress - Head Exam Head Exam: ATRAUMATIC, NORMOCEPHALIC - Extremities Exam Additional comments: RLE focused exam: VASC: DP/PT pulses are palpable 2/4, Cap refill time: < 3 sec to all digits, Temp gradient: warm to cool from proximal to distal with increasing temp gradient localized to 3rd digit, non pitting edema accompanied with erythema localized to the right foot 3rd digit. NEURO: Protective sensation grossly intact DERM: Small hyperkeratotic lesion at the level of proximal interphalangeal joint measuring approx 0.4cmx0.2cmx0.2cm noted with a central opening, very minimal purulent drainage upon palpation, no malodor, no tunneling, no undermining, no tracking or periwound erythema, Positive probe to bone. MSK: Pain on palpation of the 3rd digit, MMT: 5/5 in all 4 direction at the - Neurological Exam Neurological Exam: Alert, Awake, Oriented x3 - Psychiatric Exam Psychiatric exam: Normal Affect, Normal Mood Assessment and Plan - Assessment and Plan (Free Text) Assessment: 63 year old female evaluated for right 3rd digit cellulitis with underlying OM Plan: Patient seen and evaluated at the bedside [employer] interpretation service used for welsh translation, Number [id number] Discussed plan with attending Dr. Saldivar Labs vitals and charts reviewed ; VSS, WBC@9.9 (2/6) (decreased from day before 11.8) RLE CT evaluated: ramon erosion with cortical bone destruction noted at the DIPJ of the 3rd digit consistent with OM Wound cultures taken - G+ cocci ID consult - recs appreciated - Abx as per ID At this time, patient given option of possible amputation vs abx - patient opting to have abx - Discussed with patient of possible risks, benefits and complications of both options and chooses to have intermodal customer service abx - [employer] Professional services were utilized during this conversation Patient denies of having any form of surgical intervention at this time, will require intermodal customer service IV abx - plan for a PICC No plan for surgical intervention at this time Wound cleaned with saline and dressing applied with Dakins solution DSD Sx shoe ordered; FWB to the RLE using the surgical shoe Podiatry will continue to follow up the patient while in-house
--- NOTE | 2018-10-09 16:23 | CP.PCM.PN ---
Subjective - Date & Time of Evaluation Date of Evaluation: 10/09/18 Time of Evaluation: 08:00 - Subjective Subjective: iv rx in progress Objective - Vital Signs/Intake and Output Vital Signs (last 24 hours): Temp Pulse Resp BP Pulse Ox 98.2 F 80 20 115/69 96 10/09/18 16:00 10/09/18 16:00 10/09/18 16:00 10/09/18 16:00 10/09/18 16:00 Intake and Output: 10/09/18 10/09/18 06:59 18:59 Intake Total 780 1120 Balance 780 1120 - Medications Medications: Current Medications Acetaminophen (Tylenol 325mg Tab) 650 mg PO Q6 PRN PRN Reason: Fever >100.4 F Aspirin (Ecotrin) 81 mg PO DAILY [facility] Last Admin: 10/09/18 09:50 Dose: 81 mg Enoxaparin Sodium (Lovenox) 40 mg SC DAILY [facility] Last Admin: 10/09/18 09:49 Dose: 40 mg Ferrous Sulfate (Feosol) 325 mg PO BID [facility] Last Admin: 10/09/18 09:49 Dose: 325 mg Gabapentin (Neurontin) 300 mg PO TID [facility] Last Admin: 10/09/18 14:21 Dose: 300 mg Piperacillin Sod/Tazobactam (Sod 3.375 gm/ Sodium Chloride) 100 mls @ 200 mls/hr IVPB Q6H [facility]; Protocol Last Admin: 10/09/18 14:00 Dose: 200 mls/hr Insulin Glargine (Lantus) 20 unit SC BID [facility] Last Admin: 10/09/18 10:36 Dose: 20 units Insulin Human Regular (Novolin R) 0 unit SC ACHS [facility]; Protocol Last Admin: 10/09/18 12:30 Dose: 3 units Losartan Potassium (Cozaar) 50 mg PO DAILY [facility] Last Admin: 10/09/18 09:50 Dose: 50 mg Metformin HCl (Glucophage) 1,000 mg PO BID [facility] Last Admin: 10/09/18 09:49 Dose: 1,000 mg Metoprolol Succinate (Toprol Xl) 25 mg PO DAILY [facility] Last Admin: 10/09/18 09:49 Dose: 25 mg Pantoprazole Sodium (Protonix Ec Tab) 20 mg PO DAILY [facility] Last Admin: 10/09/18 09:50 Dose: 20 mg Sodium Hypochlorite (Dakins Solution 0.5%) 10 ml TOP DAILY [facility] Last Admin: 10/09/18 09:50 Dose: 1 applic Tramadol HCl (Ultram) 50 mg PO TID PRN PRN Reason: Pain, moderate (4-7) Last Admin: 10/08/18 00:57 Dose: 50 mg - Labs Labs: 10/05/18 07:00 10/06/18 08:04 - Constitutional Appears: Non-toxic, Chronically Ill - Head Exam Head Exam: NORMOCEPHALIC - Eye Exam Eye Exam: absent: Scleral icterus - ENT Exam ENT Exam: Mucous Membranes Dry - Neck Exam Neck Exam: absent: Lymphadenopathy - Respiratory Exam Respiratory Exam: Decreased Breath Sounds - Cardiovascular Exam Cardiovascular Exam: REGULAR RHYTHM - GI/Abdominal Exam GI & Abdominal Exam: Distended, Soft - Rectal Exam Rectal Exam: Deferred - Exam Exam: NORMAL INSPECTION - Extremities Exam Extremities Exam: absent: Pedal Edema - Back Exam Back Exam: absent: CVA tenderness (L), CVA tenderness (R) - Neurological Exam Neurological Exam: Alert, Awake - Psychiatric Exam Psychiatric exam: Depressed - Skin Skin Exam: Dry Assessment and Plan (1) Diabetic complication Status: Acute (2) Osteomyelitis Status: Acute
--- NOTE | 2018-10-09 18:55 | CP.PCM.PN ---
Subjective - Date & Time of Evaluation Date of Evaluation: 10/08/18 Time of Evaluation: 07:40 - Subjective Subjective: dictated Objective - Vital Signs/Intake and Output Vital Signs (last 24 hours): Temp Pulse Resp BP Pulse Ox 98.2 F 80 20 115/69 96 10/09/18 16:00 10/09/18 16:00 10/09/18 16:00 10/09/18 16:00 10/09/18 16:00 Intake and Output: 10/09/18 10/09/18 06:59 18:59 Intake Total 780 1120 Balance 780 1120 - Medications Medications: Current Medications Acetaminophen (Tylenol 325mg Tab) 650 mg PO Q6 PRN PRN Reason: Fever >100.4 F Aspirin (Ecotrin) 81 mg PO DAILY [facility] Last Admin: 10/09/18 09:50 Dose: 81 mg Enoxaparin Sodium (Lovenox) 40 mg SC DAILY [facility] Last Admin: 10/09/18 09:49 Dose: 40 mg Ferrous Sulfate (Feosol) 325 mg PO BID [facility] Last Admin: 10/09/18 17:23 Dose: 325 mg Gabapentin (Neurontin) 300 mg PO TID [facility] Last Admin: 10/09/18 17:23 Dose: 300 mg Piperacillin Sod/Tazobactam (Sod 3.375 gm/ Sodium Chloride) 100 mls @ 200 mls/hr IVPB Q6H [facility]; Protocol Last Admin: 10/09/18 14:00 Dose: 200 mls/hr Insulin Glargine (Lantus) 20 unit SC BID [facility] Last Admin: 10/09/18 17:23 Dose: 20 units Insulin Human Regular (Novolin R) 0 unit SC ACHS [facility]; Protocol Last Admin: 10/09/18 17:24 Dose: 4 units Losartan Potassium (Cozaar) 50 mg PO DAILY [facility] Last Admin: 10/09/18 09:50 Dose: 50 mg Metformin HCl (Glucophage) 1,000 mg PO BID [facility] Last Admin: 10/09/18 17:23 Dose: 1,000 mg Metoprolol Succinate (Toprol Xl) 25 mg PO DAILY [facility] Last Admin: 10/09/18 09:49 Dose: 25 mg Pantoprazole Sodium (Protonix Ec Tab) 20 mg PO DAILY [facility] Last Admin: 10/09/18 09:50 Dose: 20 mg Sodium Hypochlorite (Dakins Solution 0.5%) 10 ml TOP DAILY [facility] Last Admin: 10/09/18 09:50 Dose: 1 applic Tramadol HCl (Ultram) 50 mg PO TID PRN PRN Reason: Pain, moderate (4-7) Last Admin: 10/08/18 00:57 Dose: 50 mg - Labs Labs: 10/05/18 07:00 10/06/18 08:04
--- NOTE | 2018-10-09 18:55 | CP.PCM.PN ---
Subjective - Date & Time of Evaluation Date of Evaluation: 10/09/18 Time of Evaluation: 07:40 - Subjective Subjective: dictated Objective - Vital Signs/Intake and Output Vital Signs (last 24 hours): Temp Pulse Resp BP Pulse Ox 98.2 F 80 20 115/69 96 10/09/18 16:00 10/09/18 16:00 10/09/18 16:00 10/09/18 16:00 10/09/18 16:00 Intake and Output: 10/09/18 10/09/18 06:59 18:59 Intake Total 780 1120 Balance 780 1120 - Medications Medications: Current Medications Acetaminophen (Tylenol 325mg Tab) 650 mg PO Q6 PRN PRN Reason: Fever >100.4 F Aspirin (Ecotrin) 81 mg PO DAILY [facility] Last Admin: 10/09/18 09:50 Dose: 81 mg Enoxaparin Sodium (Lovenox) 40 mg SC DAILY [facility] Last Admin: 10/09/18 09:49 Dose: 40 mg Ferrous Sulfate (Feosol) 325 mg PO BID [facility] Last Admin: 10/09/18 17:23 Dose: 325 mg Gabapentin (Neurontin) 300 mg PO TID [facility] Last Admin: 10/09/18 17:23 Dose: 300 mg Piperacillin Sod/Tazobactam (Sod 3.375 gm/ Sodium Chloride) 100 mls @ 200 mls/hr IVPB Q6H [facility]; Protocol Last Admin: 10/09/18 14:00 Dose: 200 mls/hr Insulin Glargine (Lantus) 20 unit SC BID [facility] Last Admin: 10/09/18 17:23 Dose: 20 units Insulin Human Regular (Novolin R) 0 unit SC ACHS [facility]; Protocol Last Admin: 10/09/18 17:24 Dose: 4 units Losartan Potassium (Cozaar) 50 mg PO DAILY [facility] Last Admin: 10/09/18 09:50 Dose: 50 mg Metformin HCl (Glucophage) 1,000 mg PO BID [facility] Last Admin: 10/09/18 17:23 Dose: 1,000 mg Metoprolol Succinate (Toprol Xl) 25 mg PO DAILY [facility] Last Admin: 10/09/18 09:49 Dose: 25 mg Pantoprazole Sodium (Protonix Ec Tab) 20 mg PO DAILY [facility] Last Admin: 10/09/18 09:50 Dose: 20 mg Sodium Hypochlorite (Dakins Solution 0.5%) 10 ml TOP DAILY [facility] Last Admin: 10/09/18 09:50 Dose: 1 applic Tramadol HCl (Ultram) 50 mg PO TID PRN PRN Reason: Pain, moderate (4-7) Last Admin: 10/08/18 00:57 Dose: 50 mg - Labs Labs: 10/05/18 07:00 10/06/18 08:04
--- NOTE | 2018-10-09 23:13 | PN ---
DATE: 10/09/2018 SUBJECTIVE: The patient is feeling better. She denies any pain in the foot. She is on antibiotics and she is afebrile. No shortness of breath. Her blood sugars are fluctuating. PHYSICAL EXAMINATION: VITAL SIGNS: Blood pressure 115/69, pulse 80, respiratory rate 20, and temperature 98.2. LUNGS: Clear. No rales, no rhonchi. CARDIOVASCULAR: S1, S2, regular. No heave noted. ABDOMEN: Soft and nontender. Bowel sounds are positive. ASSESSMENT: 1. Right third toe osteomyelitis on oral and intravenous antibiotics as she is refusing any kind of surgery. 2. Uncontrolled diabetes. 3. Hypertension. PLAN: Continue to current medications. Increase Lantus to 24 units subcu b.i.d. Continue antibiotics. Monitor the patient. Dago Sanchez MD
[2018-10-10] MEDS: Piperacillin/Tazobact 3.375 GM in Sodium Chloride 100 ML IVPB SCH ×4 (00:49→18:09)
[2018-10-10] MEDS: (Novolin R) Insulin Human Regular 100 units/ml vial SC SCH ×4 (07:56→21:58)
--- NOTE | 2018-10-10 09:52 | CP.PCM.PN ---
Subjective - Date & Time of Evaluation Date of Evaluation: 10/10/18 Time of Evaluation: 09:48 - Subjective Subjective: Podiatry Progress Note: Dr. Saldivar 63 year old female patient was seen and evaluated at bedside for right foot 3rd digit cellulitis with underlying OM. Patient is AAOX3 and appears in NAD. Denies of any pain today. She denies of having any acute overnight events. She denies of any overnight F/N/V/C/SOB/CP/headache. She denies any other pedal complains at this time. Objective - Vital Signs/Intake and Output Vital Signs (last 24 hours): Temp Pulse Resp BP Pulse Ox 96.4 F L 93 H 16 130/78 98 10/10/18 00:00 10/10/18 00:00 10/10/18 00:00 10/10/18 00:00 10/10/18 00:00 Intake and Output: 10/10/18 10/10/18 06:59 18:59 Intake Total 900 Balance 900 - Medications Medications: Current Medications Acetaminophen (Tylenol 325mg Tab) 650 mg PO Q6 PRN PRN Reason: Fever >100.4 F Aspirin (Ecotrin) 81 mg PO DAILY [facility] Last Admin: 10/09/18 09:50 Dose: 81 mg Enoxaparin Sodium (Lovenox) 40 mg SC DAILY [facility] Last Admin: 10/09/18 09:49 Dose: 40 mg Ferrous Sulfate (Feosol) 325 mg PO BID [facility] Last Admin: 10/09/18 17:23 Dose: 325 mg Gabapentin (Neurontin) 300 mg PO TID [facility] Last Admin: 10/09/18 17:23 Dose: 300 mg Piperacillin Sod/Tazobactam (Sod 3.375 gm/ Sodium Chloride) 100 mls @ 200 mls/hr IVPB Q6H [facility]; Protocol Last Admin: 10/10/18 06:20 Dose: 200 mls/hr Insulin Glargine (Lantus) 24 unit SC BID [facility] Insulin Human Regular (Novolin R) 0 unit SC ACHS [facility]; Protocol Last Admin: 10/10/18 07:56 Dose: 3 units Losartan Potassium (Cozaar) 50 mg PO DAILY [facility] Last Admin: 10/09/18 09:50 Dose: 50 mg Metformin HCl (Glucophage) 1,000 mg PO BID [facility] Last Admin: 10/09/18 17:23 Dose: 1,000 mg Metoprolol Succinate (Toprol Xl) 25 mg PO DAILY [facility] Last Admin: 10/09/18 09:49 Dose: 25 mg Pantoprazole Sodium (Protonix Ec Tab) 20 mg PO DAILY [facility] Last Admin: 10/09/18 09:50 Dose: 20 mg Sodium Hypochlorite (Dakins Solution 0.5%) 10 ml TOP DAILY [facility] Last Admin: 10/09/18 09:50 Dose: 1 applic Tramadol HCl (Ultram) 50 mg PO TID PRN PRN Reason: Pain, moderate (4-7) Last Admin: 10/08/18 00:57 Dose: 50 mg - Labs Labs: 10/05/18 07:00 10/06/18 08:04 - Constitutional Appears: Well, Non-toxic, No Acute Distress - Extremities Exam Additional comments: RLE focused exam: VASC: DP/PT pulses are palpable 2/4, Cap refill time: < 3 sec to all digits, Temp gradient: warm to cool from proximal to distal with increasing temp gradient localized to 3rd digit, non pitting edema accompanied with erythema localized to the right foot 3rd digit. NEURO: Protective sensation grossly intact DERM: Small hyperkeratotic lesion at the level of proximal interphalangeal joint measuring approx 0.4cmx0.2cmx0.2cm noted with a central opening, no purulent drainage upon palpation, no malodor, no tunneling, no undermining, no tracking or periwound erythema, Positive probe to bone. MSK: Pain on palpation of the 3rd digit, MMT: 5/5 in all 4 direction at the - Neurological Exam Neurological Exam: Alert, Awake, Oriented x3 - Psychiatric Exam Psychiatric exam: Normal Affect, Normal Mood Assessment and Plan - Assessment and Plan (Free Text) Assessment: 63 year old female evaluated for right 3rd digit cellulitis with underlying OM Plan: Patient seen and evaluated at the bedside Discussed plan with attending Dr. Saldivar Labs vitals and charts reviewed ; VSS, WBC@9.9 (2/6) (decreased from day before 11.8) RLE CT evaluated: ramon erosion with cortical bone destruction noted at the DIPJ of the 3rd digit consistent with OM Wound cultures taken - G+ cocci ID consult - recs appreciated - Abx as per ID At this time, patient given option of possible amputation vs abx - patient opting to have abx - Discussed with patient of possible risks, benefits and complications of both options and chooses to have intermediate card tender abx - Pharmacy Informatics Manager services were utilized during this conversation Patient denies of having any form of surgical intervention at this time, will require intermediate card tender IV abx - plan for a PICC - PICC placed today Wound cleaned with saline and dressing applied with Dakins solution DSD Sx shoe ordered; FWB to the RLE using the surgical shoe No plan for surgical intervention at this time Stable from podiatry standpoint Upon discharge, please follow up with Dr. Saldivar in his office Podiatry will continue to follow up the patient while in-house
[2018-10-10] MEDS: Metoprolol Succinate 25 mg XL Tab PO SCH (09:59)
[2018-10-10] MEDS: Pantoprazole 20 mg EC Tab PO SCH (10:00)
[2018-10-10] MEDS: (Lantus) Insulin Glargine, Recombinant SC SCH ×2 (10:06→18:02)
[2018-10-10] MEDS: Enoxaparin 40 mg Syringe SC SCH (10:09)
[2018-10-10 11:00] LABS: BASO # 0.1 K/uL (0.0-0.2); BASO % 0.9 % (0.0-2.0); EOS # 0.1 K/uL (0.0-0.7); HEMOGLOBIN 8.7 g/dL (11.0-16.0); LYMPH # 1.9 K/uL (1.0-4.3); LYMPH % 29.3 % (20.0-40.0); MEAN CELL VOLUME 87.7 fL (81.0-99.0); MEAN CORPUSCULAR HEMOGLOBIN 28.8 pg (27.0-31.0); MEAN CORPUSCULAR HGB CONC 32.8 g/dL (33.0-37.0); MONO # 0.5 K/uL (0.0-0.8); MONO % 7.1 % (0.0-10.0); NEUT % 60.7 % (50.0-75.0); RBC 3.02 Mil/uL (3.80-5.20); RED CELL DISTRIBUTION WIDTH 14.6 % (11.5-14.5); WHITE BLOOD COUNT 6.6 K/uL (4.8-10.8)
[2018-10-10 11:19] LABS: BLOOD UREA NITROGEN 22 mg/dL (7-17); CALCIUM 8.8 mg/dl (8.6-10.4); GFR NON-AFRICAN AMERICAN 50
--- NOTE | 2018-10-10 12:19 | CP.PCM.PN ---
Subjective - Date & Time of Evaluation Date of Evaluation: 10/10/18 Time of Evaluation: 08:00 - Subjective Subjective: refuses surgery iv rx reordered Objective - Vital Signs/Intake and Output Vital Signs (last 24 hours): Temp Pulse Resp BP Pulse Ox 96.4 F L 93 H 16 130/78 98 10/10/18 00:00 10/10/18 00:00 10/10/18 00:00 10/10/18 00:00 10/10/18 00:00 Intake and Output: 10/10/18 10/10/18 06:59 18:59 Intake Total 900 Balance 900 - Medications Medications: Current Medications Acetaminophen (Tylenol 325mg Tab) 650 mg PO Q6 PRN PRN Reason: Fever >100.4 F Aspirin (Ecotrin) 81 mg PO DAILY [facility] Last Admin: 10/10/18 10:00 Dose: 81 mg Enoxaparin Sodium (Lovenox) 40 mg SC DAILY [facility] Last Admin: 10/10/18 10:09 Dose: 40 mg Ferrous Sulfate (Feosol) 325 mg PO BID [facility] Last Admin: 10/10/18 09:59 Dose: 325 mg Gabapentin (Neurontin) 300 mg PO TID [facility] Last Admin: 10/10/18 09:59 Dose: 300 mg Piperacillin Sod/Tazobactam (Sod 3.375 gm/ Sodium Chloride) 100 mls @ 200 mls/hr IVPB Q6H [facility]; Protocol Last Admin: 10/10/18 06:20 Dose: 200 mls/hr Insulin Glargine (Lantus) 24 unit SC BID [facility] Last Admin: 10/10/18 10:06 Dose: 24 units Insulin Human Regular (Novolin R) 0 unit SC ACHS [facility]; Protocol Last Admin: 10/10/18 12:01 Dose: 6 units Losartan Potassium (Cozaar) 50 mg PO DAILY [facility] Last Admin: 10/10/18 10:00 Dose: 50 mg Metformin HCl (Glucophage) 1,000 mg PO BID [facility] Last Admin: 10/10/18 10:00 Dose: 1,000 mg Metoprolol Succinate (Toprol Xl) 25 mg PO DAILY [facility] Last Admin: 10/10/18 09:59 Dose: 25 mg Pantoprazole Sodium (Protonix Ec Tab) 20 mg PO DAILY [facility] Last Admin: 10/10/18 10:00 Dose: 20 mg Sodium Hypochlorite (Dakins Solution 0.5%) 10 ml TOP DAILY [facility] Last Admin: 10/09/18 09:50 Dose: 1 applic Tramadol HCl (Ultram) 50 mg PO TID PRN PRN Reason: Pain, moderate (4-7) Last Admin: 10/10/18 10:07 Dose: 50 mg - Labs Labs: 10/10/18 10:54 10/10/18 10:54 - Constitutional Appears: Non-toxic, Chronically Ill - Head Exam Head Exam: NORMOCEPHALIC - Eye Exam Eye Exam: absent: Scleral icterus - ENT Exam ENT Exam: Mucous Membranes Dry - Neck Exam Neck Exam: absent: Lymphadenopathy - Respiratory Exam Respiratory Exam: Decreased Breath Sounds - Cardiovascular Exam Cardiovascular Exam: REGULAR RHYTHM - GI/Abdominal Exam GI & Abdominal Exam: Distended Assessment and Plan (1) Diabetic complication Status: Acute (2) Osteomyelitis Status: Acute - Assessment and Plan (Free Text) Assessment: cont rx for OM
--- NOTE | 2018-10-10 13:47 | RAD ---
Date of service: 10/10/2018 HISTORY: verify right PICC COMPARISON: No prior FINDINGS: LUNGS: No active pulmonary disease. PLEURA: No significant pleural effusion identified, no pneumothorax apparent. CARDIOVASCULAR: No aortic atherosclerotic calcification present. Normal cardiac size. No pulmonary vascular congestion. OSSEOUS STRUCTURES: Spinal degenerative changes. VISUALIZED UPPER ABDOMEN: Normal. OTHER FINDINGS: Right upper extremity PICC with catheter tip in the distal SVC. IMPRESSION: No active disease. Right upper extremity PICC in satisfactory position.
[2018-10-10 15:57] VITALS: RESP 20
--- NOTE | 2018-10-10 21:29 | CP.PCM.PN ---
Subjective - Date & Time of Evaluation Date of Evaluation: 10/10/18 Time of Evaluation: 07:20 - Subjective Subjective: dictated Objective - Vital Signs/Intake and Output Vital Signs (last 24 hours): Temp Pulse Resp BP Pulse Ox 98.5 F 83 20 115/57 L 95 10/10/18 15:55 10/10/18 15:55 10/10/18 15:55 10/10/18 15:55 10/10/18 15:55 Intake and Output: 10/10/18 10/11/18 18:59 06:59 Intake Total 600 Balance 600 - Medications Medications: Current Medications Acetaminophen (Tylenol 325mg Tab) 650 mg PO Q6 PRN PRN Reason: Fever >100.4 F Aspirin (Ecotrin) 81 mg PO DAILY [facility] Last Admin: 10/10/18 10:00 Dose: 81 mg Enoxaparin Sodium (Lovenox) 40 mg SC DAILY [facility] Last Admin: 10/10/18 10:09 Dose: 40 mg Ferrous Sulfate (Feosol) 325 mg PO BID [facility] Last Admin: 10/10/18 18:01 Dose: 325 mg Gabapentin (Neurontin) 300 mg PO TID [facility] Last Admin: 10/10/18 18:01 Dose: 300 mg Piperacillin Sod/Tazobactam (Sod 3.375 gm/ Sodium Chloride) 100 mls @ 200 mls/hr IVPB Q6H [facility]; Protocol Last Admin: 10/10/18 18:09 Dose: 200 mls/hr Insulin Glargine (Lantus) 24 unit SC BID [facility] Last Admin: 10/10/18 18:02 Dose: 24 units Insulin Human Regular (Novolin R) 0 unit SC ACHS [facility]; Protocol Last Admin: 10/10/18 18:03 Dose: 2 units Losartan Potassium (Cozaar) 50 mg PO DAILY [facility] Last Admin: 10/10/18 10:00 Dose: 50 mg Metformin HCl (Glucophage) 1,000 mg PO BID [facility] Last Admin: 10/10/18 18:01 Dose: 1,000 mg Metoprolol Succinate (Toprol Xl) 25 mg PO DAILY [facility] Last Admin: 10/10/18 09:59 Dose: 25 mg Pantoprazole Sodium (Protonix Ec Tab) 20 mg PO DAILY [facility] Last Admin: 10/10/18 10:00 Dose: 20 mg Sodium Hypochlorite (Dakins Solution 0.5%) 10 ml TOP DAILY [facility] Last Admin: 10/09/18 09:50 Dose: 1 applic Tramadol HCl (Ultram) 50 mg PO TID PRN PRN Reason: Pain, moderate (4-7) Last Admin: 10/10/18 18:08 Dose: 50 mg - Labs Labs: 10/10/18 10:54 10/10/18 10:54
[2018-10-11] MEDS: Piperacillin/Tazobact 3.375 GM in Sodium Chloride 100 ML IVPB SCH ×3 (00:29→13:33)
[2018-10-11] MEDS: (Novolin R) Insulin Human Regular 100 units/ml vial SC SCH ×3 (07:53→17:27)
--- NOTE | 2018-10-11 08:59 | CP.PCM.PN ---
Subjective - Date & Time of Evaluation Date of Evaluation: 10/11/18 Time of Evaluation: 08:56 - Subjective Subjective: Pt seen at bedside for right 3rd digit ulcer with osteo. Pt refuses any surgery on right 3rd toe. Pt explained that there is no guarantee that the iv abx will work and that she is still at high risk for amputation of right 3rd digit if not more. Pt understands all risks and wants to cont with [facility] iv abx. Pt is going home today and will receive iv abx. 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 Objective - Vital Signs/Intake and Output Vital Signs (last 24 hours): Temp Pulse Resp BP Pulse Ox 97.8 F 83 20 125/72 96 10/11/18 08:02 10/11/18 08:02 10/11/18 08:02 10/11/18 08:02 10/11/18 08:02 Intake and Output: 10/11/18 10/11/18 06:59 18:59 Intake Total 550 400 Balance 550 400 - Medications Medications: Current Medications Acetaminophen (Tylenol 325mg Tab) 650 mg PO Q6 PRN PRN Reason: Fever >100.4 F Aspirin (Ecotrin) 81 mg PO DAILY [facility] Last Admin: 10/10/18 10:00 Dose: 81 mg Enoxaparin Sodium (Lovenox) 40 mg SC DAILY [facility] Last Admin: 10/10/18 10:09 Dose: 40 mg Ferrous Sulfate (Feosol) 325 mg PO BID [facility] Last Admin: 10/10/18 18:01 Dose: 325 mg Gabapentin (Neurontin) 300 mg PO TID [facility] Last Admin: 10/10/18 18:01 Dose: 300 mg Piperacillin Sod/Tazobactam (Sod 3.375 gm/ Sodium Chloride) 100 mls @ 200 mls/hr IVPB Q6H [facility]; Protocol Last Admin: 10/11/18 06:38 Dose: 200 mls/hr Insulin Glargine (Lantus) 24 unit SC BID [facility] Last Admin: 10/10/18 18:02 Dose: 24 units Insulin Human Regular (Novolin R) 0 unit SC ACHS [facility]; Protocol Last Admin: 10/11/18 07:53 Dose: 2 units Losartan Potassium (Cozaar) 50 mg PO DAILY [facility] Last Admin: 10/10/18 10:00 Dose: 50 mg Metformin HCl (Glucophage) 1,000 mg PO BID [facility] Last Admin: 10/10/18 18:01 Dose: 1,000 mg Metoprolol Succinate (Toprol Xl) 25 mg PO DAILY [facility] Last Admin: 10/10/18 09:59 Dose: 25 mg Pantoprazole Sodium (Protonix Ec Tab) 20 mg PO DAILY [facility] Last Admin: 10/10/18 10:00 Dose: 20 mg Sodium Hypochlorite (Dakins Solution 0.5%) 10 ml TOP DAILY [facility] Last Admin: 10/09/18 09:50 Dose: 1 applic Tramadol HCl (Ultram) 50 mg PO TID PRN PRN Reason: Pain, moderate (4-7) Last Admin: 10/11/18 00:29 Dose: 50 mg - Labs Labs: 10/10/18 10:54 10/10/18 10:54
[2018-10-11] MEDS: Metoprolol Succinate 25 mg XL Tab PO SCH (10:04)
[2018-10-11] MEDS: Pantoprazole 20 mg EC Tab PO SCH (10:04)
[2018-10-11] MEDS: Enoxaparin 40 mg Syringe SC SCH (10:06)
[2018-10-11] MEDS: Dakin's Topical 0.5%-Full Strength (480 ml) TOP SCH (10:06)
[2018-10-11] MEDS: (Lantus) Insulin Glargine, Recombinant SC SCH ×2 (10:13→17:26)
--- NOTE | 2018-10-11 11:34 | CP.PCM.PN ---
Subjective - Date & Time of Evaluation Date of Evaluation: 10/11/18 Time of Evaluation: 12:00 - Subjective Subjective: patient seen today state feels fine, denies any chest pain, sob, abdominal pain, N/V/D . c/o sore to wally R upper arm picc line site picc line site , no swelling or bleeding noted, vss and labs reviewed - stable and afebrile Objective - Vital Signs/Intake and Output Vital Signs (last 24 hours): Temp Pulse Resp BP Pulse Ox 97.8 F 83 20 125/72 96 10/11/18 08:02 10/11/18 08:02 10/11/18 08:02 10/11/18 08:02 10/11/18 08:02 Intake and Output: 10/11/18 10/11/18 06:59 18:59 Intake Total 550 400 Balance 550 400 - Medications Medications: Current Medications Acetaminophen (Tylenol 325mg Tab) 650 mg PO Q6 PRN PRN Reason: Fever >100.4 F Aspirin (Ecotrin) 81 mg PO DAILY [facility] Last Admin: 10/11/18 10:03 Dose: 81 mg Enoxaparin Sodium (Lovenox) 40 mg SC DAILY [facility] Last Admin: 10/11/18 10:06 Dose: 40 mg Ferrous Sulfate (Feosol) 325 mg PO BID [facility] Last Admin: 10/11/18 10:04 Dose: 325 mg Gabapentin (Neurontin) 300 mg PO TID [facility] Last Admin: 10/11/18 10:03 Dose: 300 mg Piperacillin Sod/Tazobactam (Sod 3.375 gm/ Sodium Chloride) 100 mls @ 200 mls/hr IVPB Q6H [facility]; Protocol Last Admin: 10/11/18 06:38 Dose: 200 mls/hr Insulin Glargine (Lantus) 24 unit SC BID [facility] Last Admin: 10/11/18 10:13 Dose: 24 units Insulin Human Regular (Novolin R) 0 unit SC ACHS [facility]; Protocol Last Admin: 10/11/18 07:53 Dose: 2 units Losartan Potassium (Cozaar) 50 mg PO DAILY [facility] Last Admin: 10/11/18 10:05 Dose: 50 mg Metformin HCl (Glucophage) 1,000 mg PO BID [facility] Last Admin: 10/11/18 10:04 Dose: 1,000 mg Metoprolol Succinate (Toprol Xl) 25 mg PO DAILY [facility] Last Admin: 10/11/18 10:04 Dose: 25 mg Pantoprazole Sodium (Protonix Ec Tab) 20 mg PO DAILY [facility] Last Admin: 10/11/18 10:04 Dose: 20 mg Sodium Hypochlorite (Dakins Solution 0.5%) 10 ml TOP DAILY [facility] Last Admin: 10/11/18 10:06 Dose: 1 applic Tramadol HCl (Ultram) 50 mg PO TID PRN PRN Reason: Pain, moderate (4-7) Last Admin: 10/11/18 10:04 Dose: 50 mg - Labs Labs: 10/10/18 10:54 10/10/18 10:54 Assessment and Plan - Assessment and Plan (Free Text) Assessment: A/P 63 year old female patient with PMHx of DM and HTN admitted for right foot 3rd digit cellulitis and uncontrolled diabetes CT - LE - + for OM and started on IV antibiotcs Dr. Saldivar podiatry consulted and Pt refuses any surgery on right 3rd toe, and wants to continue with snf iv abx. d/w Dr. Mullen continue 6 weeks of vancomycin 1 gm daily and cefepime 1 gm q12 for 6 weeks Home care infusion arranged by case management and pt in agreement and ready for infusion at home D/w Dr. Sanchez, cleared for discharge home today and f/u with his office in 1week and Dr. saldivar office Prescription given to the home infusion company to do vanco trough q weekly starting Wednesday and cbc, CMP q weekly starting and fax result to Dr. Sanchez office and Dr. Mullen office ( for close monitoring 0) Discharge plan discussed with patient who understand and agrees with plan The following information discussed with patient to follow while on IV antibiotics Please continue vancomycin 1 gm IVBP for 6 weeks "Please continue cefipime 1 gm q12 x 6 weeks Please do vanco trough and bmp q weekly starting Wednesday for 6 weeks while on IV antibiotics ( Home infusion company will do the labs - prescription given to the home infusion company and instructions ) Please f/u with your director of individual giving Dr. saldivar office - call and make appointment Please f/u with Dr. Sanchez office - call make appointment in 1 week ( f/u vis t ) Please continue medication as per med. rec Please monitor your foot daily , if any change in color or any concerns pleas call your MD/director of individual giving " .
--- NOTE | 2018-10-11 12:04 | CP.PCM.PN ---
Subjective - Date & Time of Evaluation Date of Evaluation: 10/11/18 Time of Evaluation: 12:02 - Subjective Subjective: Podiatry Progress Note: Dr. Saldivar 63 year old female patient was seen and evaluated at bedside for right foot 3rd digit cellulitis with underlying OM. Patient is AAOX3 and appears in NAD. Denies of any pain today. She denies of having any acute overnight events. She denies of any overnight F/N/V/C/SOB/CP/headache. She denies any other pedal complains at this time. Objective - Vital Signs/Intake and Output Vital Signs (last 24 hours): Temp Pulse Resp BP Pulse Ox 97.8 F 83 20 125/72 96 10/11/18 08:02 10/11/18 08:02 10/11/18 08:02 10/11/18 08:02 10/11/18 08:02 Intake and Output: 10/11/18 10/11/18 06:59 18:59 Intake Total 550 400 Balance 550 400 - Medications Medications: Current Medications Acetaminophen (Tylenol 325mg Tab) 650 mg PO Q6 PRN PRN Reason: Fever >100.4 F Aspirin (Ecotrin) 81 mg PO DAILY [facility] Last Admin: 10/11/18 10:03 Dose: 81 mg Enoxaparin Sodium (Lovenox) 40 mg SC DAILY [facility] Last Admin: 10/11/18 10:06 Dose: 40 mg Ferrous Sulfate (Feosol) 325 mg PO BID [facility] Last Admin: 10/11/18 10:04 Dose: 325 mg Gabapentin (Neurontin) 300 mg PO TID [facility] Last Admin: 10/11/18 10:03 Dose: 300 mg Piperacillin Sod/Tazobactam (Sod 3.375 gm/ Sodium Chloride) 100 mls @ 200 mls/hr IVPB Q6H [facility]; Protocol Last Admin: 10/11/18 06:38 Dose: 200 mls/hr Insulin Glargine (Lantus) 24 unit SC BID [facility] Last Admin: 10/11/18 10:13 Dose: 24 units Insulin Human Regular (Novolin R) 0 unit SC ACHS [facility]; Protocol Last Admin: 10/11/18 07:53 Dose: 2 units Losartan Potassium (Cozaar) 50 mg PO DAILY [facility] Last Admin: 10/11/18 10:05 Dose: 50 mg Metformin HCl (Glucophage) 1,000 mg PO BID [facility] Last Admin: 10/11/18 10:04 Dose: 1,000 mg Metoprolol Succinate (Toprol Xl) 25 mg PO DAILY [facility] Last Admin: 10/11/18 10:04 Dose: 25 mg Pantoprazole Sodium (Protonix Ec Tab) 20 mg PO DAILY [facility] Last Admin: 10/11/18 10:04 Dose: 20 mg Sodium Hypochlorite (Dakins Solution 0.5%) 10 ml TOP DAILY [facility] Last Admin: 10/11/18 10:06 Dose: 1 applic Tramadol HCl (Ultram) 50 mg PO TID PRN PRN Reason: Pain, moderate (4-7) Last Admin: 10/11/18 10:04 Dose: 50 mg - Labs Labs: 10/10/18 10:54 10/10/18 10:54 - Constitutional Appears: Well, Non-toxic, No Acute Distress - Head Exam Head Exam: ATRAUMATIC, NORMOCEPHALIC - Extremities Exam Additional comments: RLE focused exam: VASC: DP/PT pulses are palpable 2/4, Cap refill time: < 3 sec to all digits, Temp gradient: warm to cool from proximal to distal with increasing temp gradien t localized to 3rd digit, non pitting edema accompanied with erythema localized to the right foot 3rd digit. NEURO: Protective sensation grossly intact DERM: Small hyperkeratotic lesion at the level of proximal interphalangeal joint measuring approx 0.4cmx0.2cmx0.2cm noted with a central opening, no purulent drainage upon palpation, no malodor, no tunneling, no undermining, no tracking or periwound erythema, Positive probe to bone. MSK: Pain on palpation of the 3rd digit, MMT: 5/5 in all 4 direction at the - Neurological Exam Neurological Exam: Alert, Awake, Oriented x3 Assessment and Plan - Assessment and Plan (Free Text) Assessment: 63 year old female evaluated for right 3rd digit cellulitis with underlying OM Plan: Patient seen and evaluated at the bedside Discussed plan with attending Dr. Saldivar Labs vitals and charts reviewed ; VSS, WBC@6.6 (10/11) RLE CT evaluated: ramon erosion with cortical bone destruction noted at the DIPJ of the 3rd digit consistent with OM Wound cultures taken - G+ cocci ID consult - recs appreciated - Abx as per ID At this time, patient given option of possible amputation vs abx - patient opting to have abx - Discussed with patient of possible risks, benefits and complications of both options and chooses to have buttermaker abx - Bleacher Operator services were utilized during this conversation Patient denies of having any form of surgical intervention at this time, will require detention IV abx - plan for a PICC - PICC placed today Wound cleaned with saline and dressing applied with Dakins solution DSD Sx shoe ordered; FWB to the RLE using the surgical shoe No plan for surgical intervention at this time Stable from podiatry standpoint Upon discharge, please follow up with Dr. Saldivar in his office Podiatry will continue to follow up the patient while in-house.
[2018-10-11 16:51] VITALS: BP 152/78; PULSE 84; TEMP 97.6; O2SAT 95
--- NOTE | 2018-10-11 17:00 | CP.PCM.PN ---
Subjective - Date & Time of Evaluation Date of Evaluation: 10/11/18 Time of Evaluation: 08:00 - Subjective Subjective: awake alert anxious Objective - Vital Signs/Intake and Output Vital Signs (last 24 hours): Temp Pulse Resp BP Pulse Ox 97.6 F 84 20 152/78 H 95 10/11/18 16:50 10/11/18 16:50 10/11/18 16:50 10/11/18 16:50 10/11/18 16:50 Intake and Output: 10/11/18 10/11/18 06:59 18:59 Intake Total 550 1000 Balance 550 1000 - Medications Medications: Current Medications Acetaminophen (Tylenol 325mg Tab) 650 mg PO Q6 PRN PRN Reason: Fever >100.4 F Aspirin (Ecotrin) 81 mg PO DAILY [facility] Last Admin: 10/11/18 10:03 Dose: 81 mg Enoxaparin Sodium (Lovenox) 40 mg SC DAILY [facility] Last Admin: 10/11/18 10:06 Dose: 40 mg Ferrous Sulfate (Feosol) 325 mg PO BID [facility] Last Admin: 10/11/18 10:04 Dose: 325 mg Gabapentin (Neurontin) 300 mg PO TID [facility] Last Admin: 10/11/18 13:34 Dose: 300 mg Piperacillin Sod/Tazobactam (Sod 3.375 gm/ Sodium Chloride) 100 mls @ 200 mls/hr IVPB Q6H [facility]; Protocol Last Admin: 10/11/18 13:33 Dose: 200 mls/hr Insulin Glargine (Lantus) 24 unit SC BID [facility] Last Admin: 10/11/18 10:13 Dose: 24 units Insulin Human Regular (Novolin R) 0 unit SC ACHS [facility]; Protocol Last Admin: 10/11/18 12:36 Dose: 6 units Losartan Potassium (Cozaar) 50 mg PO DAILY [facility] Last Admin: 10/11/18 10:05 Dose: 50 mg Metformin HCl (Glucophage) 1,000 mg PO BID [facility] Last Admin: 10/11/18 10:04 Dose: 1,000 mg Metoprolol Succinate (Toprol Xl) 25 mg PO DAILY [facility] Last Admin: 10/11/18 10:04 Dose: 25 mg Pantoprazole Sodium (Protonix Ec Tab) 20 mg PO DAILY [facility] Last Admin: 10/11/18 10:04 Dose: 20 mg Sodium Hypochlorite (Dakins Solution 0.5%) 10 ml TOP DAILY [facility] Last Admin: 10/11/18 10:06 Dose: 1 applic Tramadol HCl (Ultram) 50 mg PO TID PRN PRN Reason: Pain, moderate (4-7) Last Admin: 10/11/18 10:04 Dose: 50 mg - Labs Labs: 10/10/18 10:54 10/10/18 10:54 - Constitutional Appears: Well - Head Exam Head Exam: ATRAUMATIC, NORMAL INSPECTION, NORMOCEPHALIC - Eye Exam Eye Exam: EOMI, Normal appearance, PERRL Pupil Exam: NORMAL ACCOMODATION, PERRL - ENT Exam ENT Exam: Mucous Membranes Moist, Normal Exam - Neck Exam Neck Exam: Full ROM, Normal Inspection. absent: Lymphadenopathy - Respiratory Exam Respiratory Exam: Clear to Ausculation Bilateral, NORMAL BREATHING PATTERN - Cardiovascular Exam Cardiovascular Exam: REGULAR RHYTHM, +S1, +S2. absent: Murmur - GI/Abdominal Exam GI & Abdominal Exam: Soft, Normal Bowel Sounds. absent: Tenderness - Rectal Exam Rectal Exam: Deferred - Exam Exam: NORMAL INSPECTION - Extremities Exam Extremities Exam: Full ROM, Normal Capillary Refill, Normal Inspection. absent: Joint Swelling, Pedal Edema - Back Exam Back Exam: NORMAL INSPECTION - Neurological Exam Neurological Exam: Alert, Awake, CN II-XII Intact, Normal Gait, Oriented x3 - Psychiatric Exam Psychiatric exam: Normal Affect, Normal Mood - Skin Skin Exam: Dry, Intact, Normal Color, Warm Assessment and Plan (1) Diabetic complication Status: Acute (2) Osteomyelitis Status: Acute - Assessment and Plan (Free Text) Assessment: cont iv rx as ordered
--- NOTE | 2018-10-11 23:10 | CP.PCM.DIS ---
Provider - Provider Date of Admission: 10/05/18 00:33 Attending physician: Dago Sanchez MD Consults: 10/05/18 12:49 Physician Consult Routine Comment: Consulting Provider: John Saldivar Consulting Physician: John Saldivar Reason for Consult: rt toe cellulitis 10/05/18 15:52 Physician Consult Routine Comment: Consulting Provider: Abhishek Mullen Consulting Physician: Abhishek Mullen Reason for Consult: osteo/ toe Time Spent in preparation of Discharge (in minutes): 30 Hospital Course - Lab Results Lab Results: Micro Results 10/04/18 22:17 Blood Blood Culture - Final NO GROWTH AFTER 5 DAYS 10/04/18 22:17 Blood Gram Stain - Final TEST NOT PERFORMED 10/04/18 22:10 Blood Blood Culture - Final NO GROWTH AFTER 5 DAYS 10/04/18 22:10 Blood Gram Stain - Final TEST NOT PERFORMED 10/05/18 18:01 Foot - Right Gram Stain - Final 10/05/18 18:01 Foot - Right Wound Culture - Final Staphylococcus Aureus 10/05/18 02:03 Urine,Clean Catch Urine Culture - Final Escherichia Coli Most Recent Lab Values WBC 6.6 K/uL (4.8-10.8) 10/10/18 10:54 RBC 3.02 Mil/uL (3.80-5.20) L 10/10/18 10:54 Hgb 8.7 g/dL (11.0-16.0) L 10/10/18 10:54 Hct 26.5 % (34.0-47.0) L 10/10/18 10:54 MCV 87.7 fL (81.0-99.0) 10/10/18 10:54 MCH 28.8 pg (27.0-31.0) 10/10/18 10:54 MCHC 32.8 g/dL (33.0-37.0) L 10/10/18 10:54 RDW 14.6 % (11.5-14.5) H 10/10/18 10:54 Plt Count 468 K/uL (130-400) H 10/10/18 10:54 MPV 9.0 fL (7.2-11.7) 10/10/18 10:54 Neut % (Auto) 60.7 % (50.0-75.0) 10/10/18 10:54 Lymph % (Auto) 29.3 % (20.0-40.0) 10/10/18 10:54 [place] % (Auto) 7.1 % (0.0-10.0) 10/10/18 10:54 Eos % (Auto) 2.0 % (0.0-4.0) 10/10/18 10:54 Baso % (Auto) 0.9 % (0.0-2.0) 10/10/18 10:54 Neut # (Auto) 4.0 K/uL (1.8-7.0) 10/10/18 10:54 Lymph # (Auto) 1.9 K/uL (1.0-4.3) 10/10/18 10:54 [place] # (Auto) 0.5 K/uL (0.0-0.8) 10/10/18 10:54 Eos # (Auto) 0.1 K/uL (0.0-0.7) 10/10/18 10:54 Baso # (Auto) 0.1 K/uL (0.0-0.2) 10/10/18 10:54 pO2 42 mm/Hg (30-55) 10/05/18 01:00 VBG pH 7.48 (7.32-7.43) H 10/05/18 01:00 VBG pCO2 47 mmHg (40-60) 10/05/18 01:00 VBG HCO3 32.3 mmol/L 10/05/18 01:00 VBG Total CO2 36.4 mmol/L (22-28) H 10/05/18 01:00 VBG O2 Sat (Calc) 80.5 % (40-65) H 10/05/18 01:00 VBG Base Excess 10.0 mmol/L (0.0-2.0) H 10/05/18 01:00 VBG Potassium 2.8 mmol/L (3.6-5.2) L 10/05/18 01:00 Sodium 135.0 mmol/l (132-148) 10/05/18 01:00 Chloride 95.0 mmol/L (98-107) L 10/05/18 01:00 Glucose 191 mg/dl (65-105) H 10/05/18 01:00 Lactate 2.9 mmol/L (0.7-2.1) H 10/05/18 01:00 Crit Value Called To Dennis love/rn 10/05/18 00:30 Crit Value Called By Jayson mejia/rt 10/05/18 00:30 Crit Value Read Back Y 10/05/18 00:30 Blood Gas Notified Time 40 10/05/18 00:30 Sodium 135 mmol/L (132-148) 10/10/18 10:54 Potassium 4.7 mmol/L (3.6-5.2) 10/10/18 10:54 Chloride 99 mmol/L (98-107) 10/10/18 10:54 Carbon Dioxide 28 mmol/L (22-30) 10/10/18 10:54 Anion Gap 12 (10-20) 10/10/18 10:54 BUN 22 mg/dL (7-17) H 10/10/18 10:54 Creatinine 1.1 mg/dL (0.7-1.2) 10/10/18 10:54 Est GFR ( Amer) > 60 10/10/18 10:54 Est GFR (Non-Af Amer) 50 10/10/18 10:54 POC Glucose (mg/dL) 206 mg/dL (65-110) H 10/11/18 16:51 Random Glucose 315 mg/dL (65-105) H D 10/10/18 10:54 Hemoglobin A1c 14.2 % (4.2-6.5) H 10/04/18 22:10 Calcium 8.8 mg/dl (8.6-10.4) 10/10/18 10:54 Iron 16 ug/dL (37-170) L 10/06/18 08:04 TIBC 200 ug/dL (250-450) L 10/06/18 08:04 % Saturation 8 (20-55) L 10/06/18 08:04 Total Bilirubin 0.4 mg/dL (0.2-1.3) 10/04/18 22:10 AST 21 U/L (14-36) 10/04/18 22:10 ALT 9 U/L (9-52) 10/04/18 22:10 Alkaline Phosphatase 110 U/L (38-126) 10/04/18 22:10 Total Protein 7.0 g/dL (6.3-8.3) 10/04/18 22:10 Albumin 3.5 g/dL (3.5-5.0) 10/04/18 22:10 Globulin 3.5 gm/dL (2.2-3.9) 10/04/18 22:10 Albumin/Globulin Ratio 1.0 (1.0-2.1) 10/04/18 22:10 Lipase 62 U/L (23-300) 10/04/18 22:10 Venous Blood Potassium 2.8 mmol/L (3.6-5.2) L 10/05/18 01:00 Urine Color Yellow (YELLOW) 10/04/18 22:17 Urine Clarity Clear (Clear) 10/04/18 22:17 Urine pH 7.0 (5.0-8.0) 10/04/18 22:17 Ur Specific [place] 1.018 (1.003-1.030) 10/04/18 22:17 Urine Protein Negative mg/dL (NEGATIVE) 10/04/18 22:17 Urine Glucose (UA) 3+ mg/dL (Normal) H 10/04/18 22:17 Urine Ketones Negative mg/dL (NEGATIVE) 10/04/18 22:17 Urine Blood 1+ (NEGATIVE) H 10/04/18 22:17 Urine Nitrate Negative (NEGATIVE) 10/04/18 22:17 Urine Bilirubin Negative (NEGATIVE) 10/04/18 22:17 Urine Urobilinogen 4.0 mg/dL (0.2-1.0) H 10/04/18 22:17 Ur Leukocyte Esterase 2+ Baljit/uL (Negative) H 10/04/18 22:17 Urine WBC (Auto) 52 /hpf (0-5) H 10/04/18 22:17 Urine RBC (Auto) 5 /hpf (0-3) H 10/04/18 22:17 Ur Squamous Epith Cells 2 /hpf (0-5) 10/04/18 22:17 Urine Bacteria Occ (<OCC) H 10/04/18 22:17 Vancomycin Trough 9.8 ug/mL (5.0-10.0) 10/10/18 10:54 B-Hydroxybutyrate 0.32 mM (0.02-0.27) H 10/04/18 22:10 Discharge Exam - Head Exam Head Exam: ATRAUMATIC, NORMAL INSPECTION, NORMOCEPHALIC Discharge Plan - Discharge Medications Prescriptions: Losartan [Cozaar] 50 mg PO DAILY #30 tab Ferrous Sulfate [Feosol] 325 mg PO BID #60 tab metFORMIN [glucOPHAGE] 1,000 mg PO BID 30 Days #120 tab Insulin Glargine,Hum.rec.anlog [Lantus Solostar] 28 unit SQ BID 30 Days insuln.pen Cefepime [Maxipime] 1 gm IV Q12 #82 vial Metoprolol Succinate XL [Toprol XL] 25 mg PO DAILY #30 tab Vancomycin [Vancomycin Inj] 1,000 mg IVPB Q12H #80 vial - Follow Up Plan Condition: FAIR Disposition: HOME/ ROUTINE Instructions: Hyperglycemia, Adult (DC), Osteomyelitis (DC), Cefepime, Ferrous Sulfate, Metoprolol, Vancomycin Additional Instructions: Please continue vancomycin 1 gm IVBP for 6 weeks Please continue cefipime 1 gm q12 x 6 weeks Please do vanco trough and bmp q weekly starting Wednesday for 6 weeks while on IV antibiotics Please f/u with your continuous improvement analyst Dr. saldivar office - call and make appointment Please f/u with Dr. Sanchez office - call make appointment in 1 week ( f/u vis t ) Please continue medication as per med. rec Please monitor your foot daily , if any change in color or any concerns pleas call your MD/continuous improvement analyst . Referrals: Dago Sanchez MD [Staff Provider] -
--- NOTE | 2018-10-12 12:03 | DS ---
DISCHARGE DIAGNOSES: 1. Osteomyelitis of right foot. 2. Type 2 diabetes. 3. Hypertension. 4. Hyperlipidemia. HISTORY OF PRESENT ILLNESS: This is a 63-year-old female with poorly controlled diabetes, hypertension, hyperlipidemia, who came in with pain in the right third digit ,found to have osteomyelitis, peripheral arterial disease are excluded, she refused, hypertension and the patient is going home on six weeks of antibiotics, seen by ID and Podiatry. PHYSICAL EXAMINATION: VITAL SIGNS: Blood pressure 132/78, pulse 34. respiratory rate 20, and temperature 97.6. LUNGS: Clear. CARDIOVASCULAR SYSTEM: S1, S2, regular. ABDOMEN: Soft. EXTREMITIES: Right third toe . PLAN: Discharge the patient on six weeks of antibiotics post discharge. Followup. Dago Sanchez MD
== END 2018-10-11 20:24 | disposition home or self-care (01) | DRG 566 ==
LOC: C.ER 21:00 → C.9E 10-05 00:33 → C.3T 10-05 01:48
PROVIDERS: ADMIT Internal Medicine; ATTEND Internal Medicine
PROC: 02HV33Z Insertion of Infusion Device into Superior Vena Cava, Percutaneous Approach (ICD-10-PCS; principal; 2018-10-10)
DX: E11.69 Type 2 diabetes mellitus with other specified complication (principal); M86.171 Other acute osteomyelitis, right ankle and foot; L03.115 Cellulitis of right lower limb; L97.519 Non-pressure chronic ulcer of other part of right foot with unspecified severity; E86.0 Dehydration; E11.621 Type 2 diabetes mellitus with foot ulcer; E11.65 Type 2 diabetes mellitus with hyperglycemia; E11.42 Type 2 diabetes mellitus with diabetic polyneuropathy; I10 Essential (primary) hypertension; Z53.29 Procedure and treatment not carried out because of patient's decision for other reasons; E78.5 Hyperlipidemia, unspecified; Z79.4 Long term (current) use of insulin; Z91.11 Patient's noncompliance with dietary regimen; Z91.14 Patient's other noncompliance with medication regimen; B95.61 Methicillin susceptible Staphylococcus aureus infection as the cause of diseases classified elsewhere